=== PATIENT | male | born 1945 | race Caucasian/White ===

== ENCOUNTER 2019-08-13 05:59 | Day surgery (SDC) | payer MEDICARE, MEDICAID ==
[2019-08-13] MEDS ORDERED: Bupivacaine 0.5% 50 ML MDV ONE (06:58)
[2019-08-13] MEDS ORDERED: Lidocaine 1% with EPINEPHrine 1:100,000 50 ML MDV ONE (06:58)
[2019-08-13] MEDS ORDERED: Dextrose 5%-Lactated Ringers 1,000 ML IV SCH (07:00)
[2019-08-13] MEDS ORDERED: fentaNYL 100 MCG/2 ML SDV ONE (07:11)
[2019-08-13] MEDS ORDERED: Midazolam 1 MG/ML 2 ML SDV ONE (07:11)
[2019-08-13] MEDS ORDERED: Propofol 200 MG/20 ML SDV ONE (07:11)
[2019-08-13] MEDS ORDERED: Linezolid 600 MG in Premix Bag 1 BAG IV ONE (07:30)
[2019-08-13] MEDS ORDERED: Sodium Chloride 0.9% 1,000 ML IV SCH (09:00)
--- NOTE | 2019-08-22 14:35 | OR ---
DATE OF PROCEDURE: 08/13/2019 SURGEON: Teodoro Tai MD PREOPERATIVE DIAGNOSIS: Indication for central venous access. POSTOPERATIVE DIAGNOSIS: Indication for central venous access. PROCEDURE PERFORMED: Insertion of Bard port via left subclavian vein approach ([id number]). ANESTHESIA: Local plus IV sedation. INDICATION FOR PROCEDURE: This is a 73-year-old male presenting with advanced laryngeal carcinoma requiring scheduled IV hydration. At this point, he has a very little in the way of peripheral venous access, and a central access has been requested. Potential risks of procedure including bleeding, infection, problems with pneumohemothorax or vascular injury, problems with port becoming infected or occluded were all reviewed and the patient wishes to proceed. DETAILS OF PROCEDURE: The patient was taken to the operating room and placed in a supine position. IV sedation was administered. The upper chest and neck areas were prepped and draped. The left subclavian area was anesthetized with 1% lidocaine. Left subclavian vein cannulated, a guidewire passed, and at that point, manipulated into the superior vena cava. Some additional local was injected and a transverse infraclavicular incision was made, carried down through skin and subcutaneous tissue down to the level of the plane behind the pectoralis major fascia. This was then bluntly dissected creating a pouch for the port. Port was assembled, flushed with heparinized saline, and the port was placed in the pocket. Catheter was cut such that the tip would be in the area of the superior vena cava and right atrial junction, and it was deployed there without difficulty using the introducers and peel- away catheter system. At that point, the incision was closed with 3-0 and 4-0 Vicryl stitch deep and the skin with a 4-0 Vicryl subcuticular stitch. Port was aspirated and then injected with heparin. Once again, good back and forward flow were confirmed, and the patient was taken to the recovery room in satisfactory condition. Teodoro Tai MD /[id number]
== END 2019-08-13 10:12 | disposition home or self-care (01) ==
LOC: JP.SDS 05:59
PROVIDERS: ATTEND Surgery
DX: C32.9 Malignant neoplasm of larynx, unspecified (principal); J44.9 Chronic obstructive pulmonary disease, unspecified; E11.9 Type 2 diabetes mellitus without complications; K22.70 Barrett's esophagus without dysplasia; Z79.891 Long term (current) use of opiate analgesic
CPT/HCPCS: 36561; C1788; J1642; J2020; J2250; J2704; J3010; J3490; J7030; J7121

== ENCOUNTER 2020-06-30 16:00 | Emergency (ER) | payer MEDICARE, MEDICAID ==
--- NOTE | 2020-06-30 18:13 | EDM.PDOC ---
ED HPI GENERAL MEDICAL PROBLEM - General Chief Complaint: Respiratory Problem Stated Complaint: TROUBLE BREATHING Time Seen by Provider: 06/30/20 17:57 Source of Information: Reports: Patient History Limitations: Reports: Physical Impairment - History of Present Illness INITIAL COMMENTS - FREE TEXT/NARRATIVE: 74-year-old gentleman presents emergency department a complaint of cough and shortness of breath, he does have a tracheostomy in place therefore it is difficult to communicate he has no voice activation system communication is done by writing. He states that he has been ill for 3 days coughing up white sputum and feels short of breath no fevers no chest pain he is worried he may have pneumonia as this is similar to prior episodes - Related Data Allergies Allergy/AdvReac Type Severity Reaction Status Date / Time No Known Allergies Allergy Verified 06/30/20 16:36 Home Meds: Home Meds Omeprazole 20 mg PO ACBREAKFAST 06/26/19 [History] Vitamin B Complex [B Complex] 1 each PO DAILY 06/26/19 [History] metFORMIN [Glucophage] 850 mg PO BIDMEALS 06/26/19 [History] Past Medical History HEENT History: Reports: Cataract, Impaired Vision, Other (See Below) Other HEENT History: upper and lower dentures Respiratory History: Reports: COPD, Other (See Below) Other Respiratory History: emphysema Gastrointestinal History: Reports: Colon Polyp, Hepatitis, Other (See Below) Other Gastrointestinal History: acid reflux Musculoskeletal History: Reports: Back Pain, Chronic, Neck Pain, Chronic Neurological History: Reports: Concussion, Head Trauma, TIA Psychiatric History: Reports: Anxiety, Depression Endocrine/Metabolic History: Reports: Diabetes, Type II Immunologic History: Reports: Other (See Below) Other Immunologic History: hep C Oncologic (Cancer) History: Reports: Other (See Below) Other Oncologic History: throat - Infectious Disease History Infectious Disease History: Reports: Hepatitis C - Past Surgical History HEENT Surgical History: Reports: Cataract Surgery, Eye Surgery, Other (See Below) Other HEENT Surgeries/Procedures: eye implants Respiratory Surgical History: Reports: Tracheostomy GI Surgical History: Reports: Colonoscopy Neurological Surgical History: Reports: None Musculoskeletal Surgical History: Reports: None Oncologic Surgical History: Reports: None Social & Family History - Tobacco Use Tobacco Use Status *Q: Unknown Ever Used Tobacco - Caffeine Use Caffeine Use: Reports: None - Recreational Drug Use Recreational Drug Use: No ED ROS GENERAL - Review of Systems Review Of Systems: See Below Constitutional: Denies: Fever, Chills HEENT: Reports: No Symptoms Respiratory: Reports: Shortness of Breath, Wheezing, Cough, Sputum Cardiovascular: Reports: Dyspnea on Exertion. Denies: Chest Pain GI/Abdominal: Reports: No Symptoms : Reports: No Symptoms Musculoskeletal: Reports: No Symptoms ED EXAM, GENERAL - Physical Exam Exam: See Below Exam Limited By: No Limitations General Appearance: Alert, WD/WN, No Apparent Distress Respiratory/Chest: No Respiratory Distress, No Accessory Muscle Use, Decreased Breath Sounds, Rhonchi, Wheezing Cardiovascular: Regular Rate, Rhythm, No Murmur Course - Vital Signs Last Recorded V/S: Last Vital Signs Temp 96.5 F L 06/30/20 16:42 Pulse 75 06/30/20 18:28 Resp 20 06/30/20 17:24 BP 145/67 H 06/30/20 18:28 Pulse Ox 99 06/30/20 18:28 - Orders/Labs/Meds Orders: Active Orders 24 hr Category Date Time Status Chest 2V [CR] Urgent Exams 06/30/20 18:03 Taken Azithromycin [Zithromax] Med 06/30/20 19:00 Stat 500 mg PO NOW STA predniSONE Med 06/30/20 19:00 Once 20 mg PO ONETIME ONE Medication Orders Azithromycin (Zithromax) 500 mg PO NOW STA Stop: 06/30/20 19:01 Prednisone (Prednisone) 20 mg PO ONETIME ONE Stop: 06/30/20 19:01 Labs: Laboratory Tests 06/30/20 06/30/20 06/30/20 Range/Units 18:18 18:18 18:18 WBC 6.3 (4.5-11.0) K/uL RBC 4.28 L (4.30-5.90) M/uL Hgb 8.5 L D (12.0-15.0) g/dL Hct 28.8 L (40.0-54.0) % MCV 67 L (80-98) fL MCH 20 L (27-31) pg MCHC 30 L (32-36) % Plt Count 623 H (150-400) K/uL Neut % (Auto) 64 (36-66) % Lymph % (Auto) 18 L (24-44) % [place] % (Auto) 15 H (2-6) % Eos % (Auto) 4 (2-4) % Baso % (Auto) 1 (0-1) % Sodium 143 (140-148) mmol/L Potassium 3.7 (3.6-5.2) mmol/L Chloride 105 (100-108) mmol/L Carbon Dioxide 27 (21-32) mmol/L Anion Gap 11.1 (5.0-14.0) mmol/L BUN 21 H (7-18) mg/dL Creatinine 1.6 H (0.8-1.3) mg/dL Est Cr Clr Drug Dosing 45.81 mL/min Estimated GFR (MDRD) 43 L (>60) Glucose 98 (74-106) mg/dL Lactic Acid 1.3 (0.4-2.0) mmol/L Calcium 8.9 (8.5-10.1) mg/dL Total Bilirubin 0.2 (0.2-1.0) mg/dL AST 16 (15-37) U/L ALT 14 (12-78) U/L Alkaline Phosphatase 91 (46-116) U/L Troponin I < 0.017 (0.000-0.056) ng/mL Total Protein 7.5 (6.4-8.2) g/dL Albumin 3.6 (3.4-5.0) g/dL Globulin 3.9 H (2.3-3.5) g/dL Albumin/Globulin Ratio 0.9 L (1.2-2.2) Procalcitonin ng/mL 06/30/20 Range/Units 18:18 WBC (4.5-11.0) K/uL RBC (4.30-5.90) M/uL Hgb (12.0-15.0) g/dL Hct (40.0-54.0) % MCV (80-98) fL MCH (27-31) pg MCHC (32-36) % Plt Count (150-400) K/uL Neut % (Auto) (36-66) % Lymph % (Auto) (24-44) % [place] % (Auto) (2-6) % Eos % (Auto) (2-4) % Baso % (Auto) (0-1) % Sodium (140-148) mmol/L Potassium (3.6-5.2) mmol/L Chloride (100-108) mmol/L Carbon Dioxide (21-32) mmol/L Anion Gap (5.0-14.0) mmol/L BUN (7-18) mg/dL Creatinine (0.8-1.3) mg/dL Est Cr Clr Drug Dosing mL/min Estimated GFR (MDRD) (>60) Glucose (74-106) mg/dL Lactic Acid (0.4-2.0) mmol/L Calcium (8.5-10.1) mg/dL Total Bilirubin (0.2-1.0) mg/dL AST (15-37) U/L ALT (12-78) U/L Alkaline Phosphatase (46-116) U/L Troponin I (0.000-0.056) ng/mL Total Protein (6.4-8.2) g/dL Albumin (3.4-5.0) g/dL Globulin (2.3-3.5) g/dL Albumin/Globulin Ratio (1.2-2.2) Procalcitonin < 0.05 ng/mL Meds: Medications Generic Name Dose Route Start Last Admin Trade Name Freq PRN Reason Stop Dose Admin Azithromycin 500 mg 06/30/20 19:00 Zithromax PO 06/30/20 19:01 NOW STA Prednisone 20 mg 06/30/20 19:00 Prednisone PO 06/30/20 19:01 ONETIME ONE Departure - Departure Time of Disposition: 19:04 Disposition: Home, Self-Care 01 Condition: Poor Clinical Impression: COPD exacerbation - Discharge Information Instructions: Chronic Obstructive Pulmonary Disease Exacerbation, [id number] Referrals: PCP,None [Primary Care Provider] - Forms: ED Department Discharge Additional Instructions: Take full course of antibiotics, take full course of steroids, please followup with your primary care provider in 3-5 days if not better, please call return to the emergency department with worsening of symptoms. Sepsis Event Note (ED) - Evaluation Sepsis Screening Result: No Definite Risk - Focused Exam Vital Signs: Vital Signs Temp Pulse Resp BP Pulse Ox 06/30/20 18:28 75 145/67 H 99 06/30/20 17:53 74 132/69 97 06/30/20 17:24 75 20 123/67 98 06/30/20 16:42 96.5 F L 76 20 131/71 98 06/30/20 16:29 96.5 F L 76 22 H 131/71 98 - My Orders Last 24 Hours: My Active Orders 06/30/20 18:03 Chest 2V [CR] Urgent 06/30/20 19:00 predniSONE 20 mg PO ONETIME ONE 06/30/20 19:00 Azithromycin [Zithromax] 500 mg PO NOW STA - Assessment/Plan Last 24 Hours: My Active Orders 06/30/20 18:03 Chest 2V [CR] Urgent 06/30/20 19:00 predniSONE 20 mg PO ONETIME ONE 06/30/20 19:00 Azithromycin [Zithromax] 500 mg PO NOW STA Plan: Assessment Acuity = acute Site and laterality = COPD exacerbation Etiology = unknown Manifestations = dyspnea sputum production Location of injury = Home Lab values = 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
[2020-06-30] MEDS ORDERED: Azithromycin 250 MG Tab PO STA (19:00)
[2020-06-30] MEDS ORDERED: predniSONE 20 MG Tab PO ONE (19:00)
--- NOTE | 2020-07-01 09:16 | CR ---
CHEST: 2 view CLINICAL HISTORY:SOB COMPARISON:June 2019 FINDINGS: Patient has a tracheostomy tube in place. The heart size, pulmonary vascularity and hilar structures are normal. No infiltrate effusion or pneumothorax is seen. There are atherosclerotic changes in the aorta.. IMPRESSION: No acute cardiopulmonary process. Tracheostomy tube
== END 2020-06-30 20:26 | disposition home or self-care (01) ==
LOC: JP.ED 16:00
DX: J44.1 Chronic obstructive pulmonary disease with (acute) exacerbation (principal); E11.9 Type 2 diabetes mellitus without complications; K21.9 Gastro-esophageal reflux disease without esophagitis; Z79.84 Long term (current) use of oral hypoglycemic drugs; Z79.899 Other long term (current) drug therapy; Z86.73 Personal history of transient ischemic attack (TIA), and cerebral infarction without residual deficits
CPT/HCPCS: 36415; 71046; 80053; 83605; 84145; 84484; 85025; 99285; A9270; J7512; 99283

== ENCOUNTER 2020-07-07 10:45 | Emergency (ER) | payer MEDICARE, MEDICAID ==
--- NOTE | 2020-07-07 14:41 | EDM.PDOCBH ---
ED HPI GENERAL MEDICAL PROBLEM - General Chief Complaint: Behavioral/Psych Stated Complaint: MENTAL EVEL Time Seen by Provider: 07/07/20 14:25 Source of Information: Reports: Patient, Police History Limitations: Reports: Physical Impairment (Patient has a trach due to throat cancer, can only communicate by writing but is mentally clear) - History of Present Illness INITIAL COMMENTS - FREE TEXT/NARRATIVE: 74-year-old male arrives with police, he is homeless and been drinking daily and says if he can get into detox and someplace warm he is going to kill himself by running in front of a car. He is not suicidal from depression, only because he is homeless and drinking. He does not feel he would be suicidal if in a treatment center. He has not been to [facility] in the past but is asking to go to detox. His last drink was this morning. Onset: Unknown/Unsure Associated Symptoms: Reports: Malaise. Denies: Chest Pain, Cough, Nausea/Vomiting, Shortness of Breath - Related Data Allergies Allergy/AdvReac Type Severity Reaction Status Date / Time No Known Allergies Allergy Verified 07/07/20 14:47 Home Meds: Home Meds Omeprazole 20 mg PO ACBREAKFAST 06/26/19 [History] Vitamin B Complex [B Complex] 1 each PO DAILY 06/26/19 [History] metFORMIN [Glucophage] 850 mg PO BIDMEALS 06/26/19 [History] Past Medical History HEENT History: Reports: Cataract, Impaired Vision, Other (See Below) Other HEENT History: upper and lower dentures Respiratory History: Reports: COPD, Other (See Below) Other Respiratory History: emphysema Gastrointestinal History: Reports: Colon Polyp, Hepatitis, Other (See Below) Other Gastrointestinal History: acid reflux Musculoskeletal History: Reports: Back Pain, Chronic, Neck Pain, Chronic Neurological History: Reports: Concussion, Head Trauma, TIA Psychiatric History: Reports: Anxiety, Depression Endocrine/Metabolic History: Reports: Diabetes, Type II Immunologic History: Reports: Other (See Below) Other Immunologic History: hep C Oncologic (Cancer) History: Reports: Other (See Below) Other Oncologic History: throat - Infectious Disease History Infectious Disease History: Reports: Hepatitis C - Past Surgical History HEENT Surgical History: Reports: Cataract Surgery, Eye Surgery, Other (See Below) Other HEENT Surgeries/Procedures: eye implants Respiratory Surgical History: Reports: Tracheostomy GI Surgical History: Reports: Colonoscopy Neurological Surgical History: Reports: None Musculoskeletal Surgical History: Reports: None Oncologic Surgical History: Reports: None Social & Family History - Caffeine Use Caffeine Use: Reports: None ED ROS GENERAL - Review of Systems Review Of Systems: See Below Constitutional: Denies: Fever, Chills HEENT: Reports: Other (Unable to speak due to tracheostomy from throat cancer) Respiratory: Denies: Shortness of Breath, Cough Cardiovascular: Denies: Chest Pain GI/Abdominal: Denies: Nausea, Vomiting Skin: Reports: No Symptoms Neurological: Denies: Headache Psychiatric: Reports: Anxiety ED EXAM, BEHAVIORAL HEALTH - Physical Exam Exam: See Below Exam Limited By: No Limitations General Appearance: Alert, No Apparent Distress Eye Exam: Bilateral Eye: Normal Inspection (No jaundice) Head: Atraumatic Respiratory/Chest: No Respiratory Distress, Lungs Clear Cardiovascular: Regular Rate, Rhythm Neurological: Alert, No Motor/Sensory Deficits, Oriented x 3 Psychiatric: Flat Affect Skin Exam: Warm, Dry COURSE, BEHAVIORAL HEALTH COMP - Course Vital Signs: Last Vital Signs Temp 97.9 F 07/07/20 14:51 Pulse 79 07/07/20 14:51 Resp 16 07/07/20 14:51 BP 160/74 H 07/07/20 14:51 Pulse Ox 98 07/07/20 14:51 Orders, Labs, Meds: Laboratory Tests 07/07/20 07/07/20 07/07/20 Range/Units 14:37 14:50 14:50 WBC 10.1 (4.5-11.0) K/uL RBC 4.33 (4.30-5.90) M/uL Hgb 8.7 L (12.0-15.0) g/dL Hct 29.3 L (40.0-54.0) % MCV 68 L (80-98) fL MCH 20 L (27-31) pg MCHC 30 L (32-36) % Plt Count 672 H (150-400) K/uL Neut % (Auto) 80 H (36-66) % Lymph % (Auto) 10 L (24-44) % [place] % (Auto) 10 H (2-6) % Eos % (Auto) 0 L (2-4) % Baso % (Auto) 0 (0-1) % Sodium 141 (140-148) mmol/L Potassium 3.4 L (3.6-5.2) mmol/L Chloride 104 (100-108) mmol/L Carbon Dioxide 27 (21-32) mmol/L Anion Gap 13.4 (5.0-14.0) mmol/L BUN 23 H (7-18) mg/dL Creatinine 1.3 (0.8-1.3) mg/dL Est Cr Clr Drug Dosing 65.17 mL/min Estimated GFR (MDRD) 54 L (>60) Glucose 136 H (74-106) mg/dL Calcium 8.3 L (8.5-10.1) mg/dL Urine Opiates Screen Negative (NEGATIVE) Ur Oxycodone Screen Negative (NEGATIVE) Urine Methadone Screen Negative (NEGATIVE) Ur Propoxyphene Screen Negative (NEGATIVE) Ur Barbiturates Screen Negative (NEGATIVE) Ur Tricyclics Screen Negative (NEGATIVE) Ur Phencyclidine Scrn Negative (NEGATIVE) Ur Amphetamine Screen Negative (NEGATIVE) U Methamphetamines Scrn Negative (NEGATIVE) Urine MDMA Screen Negative (NEGATIVE) U Benzodiazepines Scrn Negative (NEGATIVE) U Cocaine Metab Screen Negative (NEGATIVE) U Marijuana (THC) Screen Negative (NEGATIVE) Ethyl Alcohol mg/dL 07/07/20 Range/Units 14:50 WBC (4.5-11.0) K/uL RBC (4.30-5.90) M/uL Hgb (12.0-15.0) g/dL Hct (40.0-54.0) % MCV (80-98) fL MCH (27-31) pg MCHC (32-36) % Plt Count (150-400) K/uL Neut % (Auto) (36-66) % Lymph % (Auto) (24-44) % [place] % (Auto) (2-6) % Eos % (Auto) (2-4) % Baso % (Auto) (0-1) % Sodium (140-148) mmol/L Potassium (3.6-5.2) mmol/L Chloride (100-108) mmol/L Carbon Dioxide (21-32) mmol/L Anion Gap (5.0-14.0) mmol/L BUN (7-18) mg/dL Creatinine (0.8-1.3) mg/dL Est Cr Clr Drug Dosing mL/min Estimated GFR (MDRD) (>60) Glucose (74-106) mg/dL Calcium (8.5-10.1) mg/dL Urine Opiates Screen (NEGATIVE) Ur Oxycodone Screen (NEGATIVE) Urine Methadone Screen (NEGATIVE) Ur Propoxyphene Screen (NEGATIVE) Ur Barbiturates Screen (NEGATIVE) Ur Tricyclics Screen (NEGATIVE) Ur Phencyclidine Scrn (NEGATIVE) Ur Amphetamine Screen (NEGATIVE) U Methamphetamines Scrn (NEGATIVE) Urine MDMA Screen (NEGATIVE) U Benzodiazepines Scrn (NEGATIVE) U Cocaine Metab Screen (NEGATIVE) U Marijuana (THC) Screen (NEGATIVE) Ethyl Alcohol < 3 mg/dL Medications Discontinued Medications Generic Name Dose Route Start Last Admin Trade Name Freq PRN Reason Stop Dose Admin Lorazepam 0.5 mg 07/07/20 16:10 07/07/20 16:35 Ativan PO 07/07/20 16:11 0.5 mg ONETIME ONE Administration Re-Assessment/Re-Exam: Consulted the detox center, they do have a male bed available. EtOH and urine drug screen were requested. Patient was stable while in the emergency room. Hemoglobin is low but improved from 1 week ago. Urine drug screen is negative and alcohol is 0, patient does claim that he has had nothing to drink since early this morning. [facility] will be called to see if they will admit him to detox. Urine drug screen is negative, EtOH is less than 3. Patient was given 0.5 mg of oral Ativan because it his anxiety and will be transferred to [facility] for detox. Departure - Departure Time of Disposition: 18:17 Disposition: DC/Tfer to Other 70 Clinical Impression: Alcohol abuse, Anxiety - Discharge Information Instructions: Alcohol Use Disorder Referrals: PCP,None [Primary Care Provider] - Forms: ED Department Discharge Care Plan Goals: Participate in alcohol detox as recommended, and recheck with a primary provider after your discharge. Avoid alcohol in the future.
[2020-07-07] MEDS ORDERED: LORazepam 0.5 MG Tab PO ONE (16:10)
== END 2020-07-07 18:17 | disposition other institution (70) ==
LOC: JP.ED 10:45
DX: F41.9 Anxiety disorder, unspecified (principal); F10.10 Alcohol abuse, uncomplicated; J43.9 Emphysema, unspecified; E11.9 Type 2 diabetes mellitus without complications
CPT/HCPCS: 36415; 80048; 80305; 80307; 85025; 99284; A9270

== ENCOUNTER 2020-07-17 15:26 | Emergency (ER) | payer MEDICARE, MEDICAID ==
--- NOTE | 2020-07-17 18:53 | EDM.PDOC ---
ED HPI GENERAL MEDICAL PROBLEM - General Chief Complaint: Drug or Alcohol Abuse Stated Complaint: DETOX Time Seen by Provider: 07/17/20 18:47 Source of Information: Reports: Patient, RN Notes Reviewed History Limitations: Reports: No Limitations - History of Present Illness INITIAL COMMENTS - FREE TEXT/NARRATIVE: 74-year-old gentleman presents emergency department requesting to go to detox he is homeless no complaints - Related Data Allergies Allergy/AdvReac Type Severity Reaction Status Date / Time No Known Allergies Allergy Verified 07/17/20 18:19 Home Meds: Home Meds Omeprazole 20 mg PO ACBREAKFAST 06/26/19 [History] Past Medical History HEENT History: Reports: Cataract, Impaired Vision, Other (See Below) Other HEENT History: upper and lower dentures Respiratory History: Reports: COPD, Other (See Below) Other Respiratory History: emphysema Gastrointestinal History: Reports: Colon Polyp, Hepatitis, Other (See Below) Other Gastrointestinal History: acid reflux Musculoskeletal History: Reports: Back Pain, Chronic, Neck Pain, Chronic Neurological History: Reports: Concussion, Head Trauma, TIA Psychiatric History: Reports: Anxiety, Depression Endocrine/Metabolic History: Reports: Diabetes, Type II Immunologic History: Reports: Other (See Below) Other Immunologic History: hep C Oncologic (Cancer) History: Reports: Other (See Below) Other Oncologic History: throat - Infectious Disease History Infectious Disease History: Reports: Hepatitis C - Past Surgical History HEENT Surgical History: Reports: Cataract Surgery, Eye Surgery, Other (See Below) Other HEENT Surgeries/Procedures: eye implants Respiratory Surgical History: Reports: Tracheostomy GI Surgical History: Reports: Colonoscopy Neurological Surgical History: Reports: None Musculoskeletal Surgical History: Reports: None Oncologic Surgical History: Reports: None Social & Family History - Tobacco Use Tobacco Use Status *Q: Current Some Day Tobacco User Years of Tobacco use: 40 Packs/Tins Daily: 0.1 - Caffeine Use Caffeine Use: Reports: None ED ROS GENERAL - Review of Systems Review Of Systems: See Below Constitutional: Reports: No Symptoms ED EXAM, GENERAL - Physical Exam Exam: See Below Exam Limited By: No Limitations General Appearance: Alert, WD/WN, No Apparent Distress Respiratory/Chest: No Respiratory Distress Course - Vital Signs Last Recorded V/S: Last Vital Signs Temp 97.4 F 07/17/20 18:14 Pulse 77 07/17/20 18:14 Resp 16 07/17/20 18:14 BP 123/66 11/27/20 18:14 Pulse Ox 97 07/17/20 18:14 Departure - Departure Time of Disposition: 18:53 Disposition: Home, Self-Care 01 Condition: Poor Clinical Impression: Homeless - Discharge Information Referrals: PCP,None [Primary Care Provider] - Additional Instructions: Follow-up with your primary care as needed Sepsis Event Note (ED) - Focused Exam Vital Signs: Vital Signs Temp Pulse Resp BP Pulse Ox 07/17/20 18:14 97.4 F 77 16 123/66 97 - Assessment/Plan Plan: Assessment Acuity = acute Site and laterality = alcoholic abuse and dependence Etiology = EtOH Manifestations = none Location of injury = Home Lab values = none Plan The detoxification facility in [facility] has declined him because of his behavior in the past he is currently homeless I did offer him to stay in the lobby until he can figure out where he needs to go. This note was dictated using [employer] voice recognition software please call with any questions on syntax or grammar.
== END 2020-07-17 19:04 | disposition home or self-care (01) ==
LOC: JP.ED 15:26
DX: Z59.0 Homelessness (principal); J44.9 Chronic obstructive pulmonary disease, unspecified; E11.9 Type 2 diabetes mellitus without complications; F17.210 Nicotine dependence, cigarettes, uncomplicated; Z86.73 Personal history of transient ischemic attack (TIA), and cerebral infarction without residual deficits
CPT/HCPCS: 99284

== ENCOUNTER 2020-07-31 19:38 | Observation (INO) | payer MEDICARE, MEDICAID ==
--- NOTE | 2020-07-31 21:04 | EDM.PDOC ---
ED HPI GENERAL MEDICAL PROBLEM - General Chief Complaint: General Stated Complaint: [facility] Time Seen by Provider: 07/31/20 20:05 Source of Information: Reports: Patient, EMS History Limitations: Reports: Language Barrier - History of Present Illness INITIAL COMMENTS - FREE TEXT/NARRATIVE: 74-year-old male, history of tracheal cancer and tracheostomy was brought in by ambulance because a well patient check follow patient in a dark unheated camper with no running water. Patient claims he wants to . Is also having significant pain of his feet. Cough but no shortness of breath, denies any fever or chills. A few weeks ago he was sent out to [place] for detox and was discharged. The police felt he was unsafe staying in the camper so called the ambulance. Onset: Unknown/Unsure Associated Symptoms: Reports: Cough, Malaise, Other (Lower extremity pain bilaterally, posterior right shoulder pain) bilateral feet Pain Score (Numeric/FACES): 8 - Related Data Allergies Allergy/AdvReac Type Severity Reaction Status Date / Time No Known Allergies Allergy Verified 07/31/20 20:02 Home Meds: Home Meds Omeprazole 20 mg PO ACBREAKFAST 06/26/19 [History] Past Medical History HEENT History: Reports: Cataract, Impaired Vision, Other (See Below) Other HEENT History: upper and lower dentures Respiratory History: Reports: COPD, Other (See Below) Other Respiratory History: emphysema. Tracheostomy Gastrointestinal History: Reports: Colon Polyp, Hepatitis, Other (See Below) Other Gastrointestinal History: acid reflux Musculoskeletal History: Reports: Back Pain, Chronic, Neck Pain, Chronic Neurological History: Reports: Concussion, Head Trauma, TIA Psychiatric History: Reports: Anxiety, Depression, Suicide Attempt, Suicidal Ideation Endocrine/Metabolic History: Reports: Diabetes, Type II Immunologic History: Reports: Other (See Below) Other Immunologic History: hep C Oncologic (Cancer) History: Reports: Other (See Below) Other Oncologic History: throat - Infectious Disease History Infectious Disease History: Reports: Hepatitis C - Past Surgical History HEENT Surgical History: Reports: Cataract Surgery, Eye Surgery, Other (See Below) Other HEENT Surgeries/Procedures: eye implants Respiratory Surgical History: Reports: Tracheostomy GI Surgical History: Reports: Colonoscopy Neurological Surgical History: Reports: None Musculoskeletal Surgical History: Reports: None Oncologic Surgical History: Reports: None Social & Family History - Tobacco Use Tobacco Use Status *Q: Never Tobacco User - Caffeine Use Caffeine Use: Reports: None - Recreational Drug Use Recreational Drug Use: No ED ROS GENERAL - Review of Systems Review Of Systems: See Below Constitutional: Reports: Malaise. Denies: Fever, Chills HEENT: Reports: Other (Tracheostomy). Denies: Throat Pain Respiratory: Reports: Cough, Sputum Cardiovascular: Reports: Chest Pain (Right posterior chest pain around his right shoulder which is chronic) GI/Abdominal: Denies: Nausea, Vomiting Neurological: Reports: Other (Neuropathy-like symptoms of both his lower extremities especially around the feet and ankles). Denies: Confusion, Headache Psychiatric: Reports: Depression, Suicidal Ideation ED EXAM, GENERAL - Physical Exam Exam: See Below Exam Limited By: Language Barrier General Appearance: Alert, No Apparent Distress Eye Exam: Bilateral Eye: Other (Conjunctiva are pale, no other findings or asymmetry) Head: Atraumatic Neck: Other (Open tracheostomy hole) Respiratory/Chest: No Respiratory Distress, Wheezing (A few scattered expiratory wheezes but generally clear) Cardiovascular: Regular Rate, Rhythm GI/Abdominal: Soft, Non-Tender Extremities: Other (Even light palpation of the calcaneus area of either foot, the heel, or the top of the foot causes pain. There does not appear to be any ischemia or discoloration of the skin. He does have onychomycosis of the large toenails). No: Pedal Edema Neurological: Alert, Oriented, No Motor/Sensory Deficits Psychiatric: Normal Affect, Normal Mood Skin Exam: Warm, Dry Course - Vital Signs Last Recorded V/S: Last Vital Signs Temp 97.8 F 08/01/20 00:13 Pulse 66 08/01/20 00:13 Resp 16 08/01/20 00:13 BP 130/45 L 08/01/20 00:13 Pulse Ox 97 08/01/20 00:13 - Orders/Labs/Meds Orders: Active Orders 24 hr Category Date Time Status Chest 2V [CR] Routine Exams 07/31/20 20:04 Taken DRUG SCREEN, URINE [URCHEM] Stat Lab 07/31/20 20:04 Ordered UA W/MICROSCOPIC [URIN] Urgent Lab 07/31/20 20:04 Ordered Medication Orders Acetaminophen (Tylenol) 650 mg PO Q4H PRN PRN Reason: Pain (Mild 1-3)/fever Hydrocodone Bitart/Acetaminophen ([place] 325-5 Mg) 2 tab PO Q4H PRN PRN Reason: Pain (moderate 4-6) Albuterol (Proventil Neb Soln) 2.5 mg NEB Q4H PRN PRN Reason: Shortness Of Breath/wheezing Albuterol/Ipratropium (Duoneb 3.0-0.5 Mg/3 Ml) 3 ml NEB QID PRN PRN Reason: Shortness Of Breath/wheezing Bisacodyl (Dulcolax) 5 mg PO DAILY PRN PRN Reason: Constipation Docusate Sodium (Colace) 100 mg PO BID PRN PRN Reason: Constipation Gabapentin (Neurontin) 100 mg PO TID [facility] Last Admin: 08/01/20 01:04 Dose: 100 mg Documented by: MARIA FERNANDA Sodium Chloride (Normal Saline) 1,000 mls @ 125 mls/hr IV ASDIRECTED [facility] Last Admin: 08/01/20 01:04 Dose: 125 mls/hr Documented by: MARIA FERNANDA Lorazepam (Ativan) 1 mg IV Q6H PRN PRN Reason: Agitation Melatonin (Melatonin) 6 mg PO BEDTIME [facility] Last Admin: 08/01/20 01:04 Dose: 6 mg Documented by: MARIA FERNANDA Morphine Sulfate (Morphine) 2 mg IVPUSH Q2H PRN PRN Reason: Pain (severe 7-10) Ondansetron HCl (Zofran Odt) 4 mg PO Q6H PRN PRN Reason: Nausea able to take PO Ondansetron HCl (Zofran) 4 mg IV Q4H PRN PRN Reason: Nausea/Vomiting Pantoprazole Sodium (Protonix Iv) 40 mg IV BID [facility] Last Admin: 08/01/20 01:04 Dose: 40 mg Documented by: MARIA FERNANDA Labs: Laboratory Tests 07/31/20 07/31/20 07/31/20 Range/Units 20:18 20:18 20:18 WBC 6.6 (4.5-11.0) K/uL RBC 3.80 L (4.30-5.90) M/uL Hgb 7.8 L (12.0-15.0) g/dL Hct 26.0 L (40.0-54.0) % MCV 68 L (80-98) fL MCH 21 L (27-31) pg MCHC 30 L (32-36) % Plt Count 438 H (150-400) K/uL Neut % (Auto) 69 H (36-66) % Lymph % (Auto) 14 L (24-44) % [place] % (Auto) 12 H (2-6) % Eos % (Auto) 4 (2-4) % Baso % (Auto) 1 (0-1) % Sodium 142 (140-148) mmol/L Potassium 3.6 (3.6-5.2) mmol/L Chloride 105 (100-108) mmol/L Carbon Dioxide 20 L (21-32) mmol/L Anion Gap 20.6 H (5.0-14.0) mmol/L BUN 27 H (7-18) mg/dL Creatinine 1.6 H (0.8-1.3) mg/dL Est Cr Clr Drug Dosing 45.81 mL/min Estimated GFR (MDRD) 43 L (>60) Glucose 92 (74-106) mg/dL Calcium 8.6 (8.5-10.1) mg/dL Total Bilirubin 0.5 D (0.2-1.0) mg/dL AST 56 H D (15-37) U/L ALT 30 D (12-78) U/L Alkaline Phosphatase 89 (46-116) U/L Total Protein 7.3 (6.4-8.2) g/dL Albumin 3.8 (3.4-5.0) g/dL Globulin 3.5 (2.3-3.5) g/dL Albumin/Globulin Ratio 1.1 L (1.2-2.2) Amylase (25-115) U/L Lipase (73-393) U/L Ethyl Alcohol 4 mg/dL SARS-CoV-2 RNA (ZANDER) (NEGATIVE) 07/31/20 07/31/20 Range/Units 21:22 22:00 WBC (4.5-11.0) K/uL RBC (4.30-5.90) M/uL Hgb (12.0-15.0) g/dL Hct (40.0-54.0) % MCV (80-98) fL MCH (27-31) pg MCHC (32-36) % Plt Count (150-400) K/uL Neut % (Auto) (36-66) % Lymph % (Auto) (24-44) % [place] % (Auto) (2-6) % Eos % (Auto) (2-4) % Baso % (Auto) (0-1) % Sodium (140-148) mmol/L Potassium (3.6-5.2) mmol/L Chloride (100-108) mmol/L Carbon Dioxide (21-32) mmol/L Anion Gap (5.0-14.0) mmol/L BUN (7-18) mg/dL Creatinine (0.8-1.3) mg/dL Est Cr Clr Drug Dosing mL/min Estimated GFR (MDRD) (>60) Glucose (74-106) mg/dL Calcium (8.5-10.1) mg/dL Total Bilirubin (0.2-1.0) mg/dL AST (15-37) U/L ALT (12-78) U/L Alkaline Phosphatase (46-116) U/L Total Protein (6.4-8.2) g/dL Albumin (3.4-5.0) g/dL Globulin (2.3-3.5) g/dL Albumin/Globulin Ratio (1.2-2.2) Amylase 51 (25-115) U/L Lipase 140 (73-393) U/L Ethyl Alcohol mg/dL SARS-CoV-2 RNA (ZANDER) Negative (NEGATIVE) Meds: Medications Generic Name Dose Route Start Last Admin Trade Name Freq PRN Reason Stop Dose Admin Acetaminophen 650 mg 08/01/20 00:13 Tylenol PO Q4H PRN Pain (Mild 1-3)/fever Hydrocodone Bitart/Acetaminophen 2 tab 08/01/20 00:13 [place] 325-5 Mg PO Q4H PRN Pain (moderate 4-6) Albuterol 2.5 mg 08/01/20 00:13 Proventil Neb Soln NEB Q4H PRN Shortness Of Breath/wheezing Albuterol/Ipratropium 3 ml 08/01/20 00:13 Duoneb 3.0-0.5 Mg/3 Ml NEB QID PRN Shortness Of Breath/wheezing Bisacodyl 5 mg 08/01/20 00:13 Dulcolax PO DAILY PRN Constipation Docusate Sodium 100 mg 08/01/20 00:13 Colace PO BID PRN Constipation Gabapentin 100 mg 08/01/20 00:13 08/01/20 01:04 Neurontin PO 100 mg TID RENNY Administration Sodium Chloride 1,000 mls @ 125 mls/hr 08/01/20 00:13 08/01/20 01:04 Normal Saline IV 125 mls/hr ASDIRECTED [facility] Administration Lorazepam 1 mg 08/01/20 00:13 Ativan IV Q6H PRN Agitation Melatonin 6 mg 08/01/20 00:13 08/01/20 01:04 Melatonin PO 6 mg BEDTIME [facility] Administration Morphine Sulfate 2 mg 08/01/20 00:13 Morphine IVPUSH Q2H PRN Pain (severe 7-10) Ondansetron HCl 4 mg 08/01/20 00:13 Zofran Odt PO Q6H PRN Nausea able to take PO Ondansetron HCl 4 mg 08/01/20 00:13 Zofran IV Q4H PRN Nausea/Vomiting Pantoprazole Sodium 40 mg 08/01/20 00:13 08/01/20 01:04 Protonix Iv IV 40 mg BID RENNY Administration - Re-Assessments/Exams Free Text/Narrative Re-Assessment/Exam: 07/31/20 21:04 A urine will be obtained for urine drug screen, CBC CMP and EtOH. Two-view chest x-ray was ordered. 07/31/20 21:37 CBC reveals a hemoglobin of only 7.8, patient at that time revealed that he has had some dark stools over the past several weeks. He is continuing to drink alcohol, his alcohol level at this time is only 0.004. No nausea vomiting while in the emergency room. I think this patient needs admission to work-up his worsening anemia and possible GI bleed. Chest x-ray showed no infiltrate. He did remain stable. 07/31/20 21:38 Liver function, amylase and lipase were normal. Madisyn Harper of the hospitalist service was asked to see the patient to consider admission for stabilization and initiation of work-up for ongoing apparent blood loss anemia from GI bleed. 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
--- NOTE | 2020-07-31 23:25 | PCM.HP.2 ---
H&P History of Present Illness - General Date of Service: 07/31/20 Source of Information: Patient, Provider, RN History Limitations: Reports: Language Barrier (open tracheostomy in neck.) - History of Present Illness Initial Comments - Free Text/Narative: chief complaint: weakness 74-year-old male, history of tracheal cancer and tracheostomy was brought in by ambulance because a well patient check follow patient in a dark unheated camper with no running water. Patient claims he wants to . Is also having significant pain of his feet. Cough but no shortness of breath, denies any fever or chills. A few weeks ago he was sent out to [place] for detox and was discharged. The police felt he was unsafe staying in the camper so called the ambulance. Onset: Unknown/Unsure ER work up 07/31/20 21:04 A urine will be obtained for urine drug screen, CBC CMP and EtOH. Two-view chest x-ray was ordered. 07/31/20 21:37 CBC reveals a hemoglobin of only 7.8, patient at that time revealed that he has had some dark stools over the past several weeks. He is continuing to drink alcohol, his alcohol level at this time is only 0.004. No nausea vomiting while in the emergency room. needs admission to work-up his worsening anemia and possible GI bleed. Chest x-ray showed no infiltrate. He did remain stable. 07/31/20 21:38 Liver function, amylase and lipase were normal. Madisyn Harper of the hospitalist service was asked to see the patient to consider admission for stabilization and initiation of work-up for ongoing apparent blood loss anemia from GI bleed. Care Plan Goals: Patient will be admitted to the hospitalist service to initiate treatment and work-up for persistent blood loss anemia. He also has some serious social issues such as homelessness and depression with suicidal ideation which is going to need attention. Patient declines any surgical evaluation of blood loss at this time, he is more concern with lower leg and feet pain. Onset of Symptoms: Reports: Unknown/Unsure Location: Reports: Generalized (weakness and lower leg-feet pain) Quality: Reports: Sharp (sharp intense pain with light touch of feet and lower l egs.) Severity: Severe Improves with: Reports: Rest Worsens with: Reports: Movement (walking is very difficult due to the painful legs and feet) Associated Symptoms: Reports: Weakness, Other (reports drank 3 alcohol drinks today) bilateral feet Pain Score (Numeric/FACES): 8 - Related Data Allergies/Adverse Reactions: Allergies Allergy/AdvReac Type Severity Reaction Status Date / Time No Known Allergies Allergy Verified 07/31/20 20:02 Home Medications: Home Meds Omeprazole 20 mg PO ACBREAKFAST 06/26/19 [History] Past Medical History HEENT History: Reports: Cataract, Impaired Vision, Other (See Below) Other HEENT History: upper and lower dentures Respiratory History: Reports: COPD, Other (See Below) Other Respiratory History: emphysema. Tracheostomy Gastrointestinal History: Reports: Colon Polyp, Hepatitis, Other (See Below) Other Gastrointestinal History: acid reflux Musculoskeletal History: Reports: Back Pain, Chronic, Neck Pain, Chronic Neurological History: Reports: Concussion, Head Trauma, TIA Psychiatric History: Reports: Anxiety, Depression, Suicide Attempt, Suicidal Ideation Endocrine/Metabolic History: Reports: Diabetes, Type II Immunologic History: Reports: Other (See Below) Other Immunologic History: hep C Oncologic (Cancer) History: Reports: Other (See Below) Other Oncologic History: throat - Infectious Disease History Infectious Disease History: Reports: Hepatitis C - Past Surgical History HEENT Surgical History: Reports: Cataract Surgery, Eye Surgery, Other (See Below) Other HEENT Surgeries/Procedures: eye implants Respiratory Surgical History: Reports: Tracheostomy GI Surgical History: Reports: Colonoscopy Neurological Surgical History: Reports: None Musculoskeletal Surgical History: Reports: None Oncologic Surgical History: Reports: None Social & Family History - Tobacco Use Tobacco Use Status *Q: Never Tobacco User - Caffeine Use Caffeine Use: Reports: None - Recreational Drug Use Recreational Drug Use: No - Living Situation & Occupation Living situation: Reports: Occupation: Disabled (lives in a unheated camper) H&P Review of Systems - Review of Systems: Review Of Systems: See Below General: Reports: Weakness HEENT: Reports: Glasses, Sore Throat (history of advanced laryngeal caricinoma, open tracheostomy ), Other (dentures-not wearing at this time) Pulmonary: Reports: No Symptoms, Cough (due to open tracheostomy hole), Other (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 ) Cardiovascular: Reports: No Symptoms Gastrointestinal: Reports: Black Stool (reports dark stool over the past several weeks.) Genitourinary: Reports: No Symptoms Musculoskeletal: Reports: Shoulder Pain (chronic right shoulder and scapula pain) Skin: Reports: Other (large surgical scar noted to the left mid chest along mid- clavicular line to mid-clavicle) Psychiatric: Reports: Anxiety Neurological: Reports: Trouble Speaking (due to open tacheostomy), Other (Neuropathy-like symptoms of both his lower extremities especially around the feet and ankles) Hematologic/Lymphatic: Reports: Anemia Immunologic: Reports: No Symptoms Exam - Exam Exam: See Below - Vital Signs Vital Signs: Last Vital Signs Temp 36.6 C 07/31/20 20:03 Pulse 79 07/31/20 20:03 Resp 20 07/31/20 20:03 BP 140/63 07/31/20 20:03 Pulse Ox 97 07/31/20 20:03 Weight: 86.183 kg - Exam General: Alert, Cooperative, Mild Distress, Other (unkemp appearance.) HEENT: PERRLA, Conjunctiva Clear (pale), EOMI, Hearing Intact, Glasses, Other (denture. ). No: Mucosa Moist & [place] (mouth is dry) Neck: Supple, Trachea Midline (open tracheostomy ), Full Range of Motion, Other (Open tracheostomy hole) Lungs: Normal Respiratory Effort, Decreased Breath Sounds (bilateral), Wheezing, Other ((A few scattered expiratory wheezes but generally clear)) Cardiovascular: Regular Rate, Regular Rhythm, Normal S1, Normal S2 GI/Abdominal Exam: Normal Bowel Sounds, Soft, Non-Tender, No Distention (Male) Exam: Deferred Rectal (Males) Exam: Deferred Back Exam: Normal Inspection, Full Range of Motion, Muscle Spasm (right upper back) Extremities: No Pedal Edema (feet skin is dry and dry.), Normal Capillary Refill, Leg Pain (bilateral lower leg and feet with intense pain with light touch. pulses equal and 2 + bilateral doralis pedis), Other ( Other (Even light palpation of the calcaneus area of either foot, the heel, or the top of the foot causes pain. There does not appear to be any ischemia or discoloration of the skin. He does have onychomycosis of the large toenails). No: Pedal Edema) Peripheral Pulses: 2+: Dorsalis Pedis (L), Dorsalis Pedis (R) Skin: Warm, Dry, Intact, Cool (feet) Neurological: Strength Equal Bilateral Neuro Extensive - Mental Status: Normal Mood/Affect (difficulty with speech due to tracheostomy. but is cooperative and trying express needs.) Psychiatric: Alert, Normal Affect, Normal Mood - Patient Data Lab Results Last 24 hrs: Laboratory Results - last 24 hr 07/31/20 07/31/20 07/31/20 Range/Units 20:18 20:18 20:18 WBC 6.6 (4.5-11.0) K/uL RBC 3.80 L (4.30-5.90) M/uL Hgb 7.8 L (12.0-15.0) g/dL Hct 26.0 L (40.0-54.0) % MCV 68 L (80-98) fL MCH 21 L (27-31) pg MCHC 30 L (32-36) % Plt Count 438 H (150-400) K/uL Neut % (Auto) 69 H (36-66) % Lymph % (Auto) 14 L (24-44) % [place] % (Auto) 12 H (2-6) % Eos % (Auto) 4 (2-4) % Baso % (Auto) 1 (0-1) % Sodium 142 (140-148) mmol/L Potassium 3.6 (3.6-5.2) mmol/L Chloride 105 (100-108) mmol/L Carbon Dioxide 20 L (21-32) mmol/L Anion Gap 20.6 H (5.0-14.0) mmol/L BUN 27 H (7-18) mg/dL Creatinine 1.6 H (0.8-1.3) mg/dL Est Cr Clr Drug Dosing 45.81 mL/min Estimated GFR (MDRD) 43 L (>60) Glucose 92 (74-106) mg/dL Calcium 8.6 (8.5-10.1) mg/dL Total Bilirubin 0.5 D (0.2-1.0) mg/dL AST 56 H D (15-37) U/L ALT 30 D (12-78) U/L Alkaline Phosphatase 89 (46-116) U/L Total Protein 7.3 (6.4-8.2) g/dL Albumin 3.8 (3.4-5.0) g/dL Globulin 3.5 (2.3-3.5) g/dL Albumin/Globulin Ratio 1.1 L (1.2-2.2) Amylase (25-115) U/L Lipase (73-393) U/L Ethyl Alcohol 4 mg/dL SARS-CoV-2 RNA (ZANDER) (NEGATIVE) 07/31/20 07/31/20 Range/Units 21:22 22:00 WBC (4.5-11.0) K/uL RBC (4.30-5.90) M/uL Hgb (12.0-15.0) g/dL Hct (40.0-54.0) % MCV (80-98) fL MCH (27-31) pg MCHC (32-36) % Plt Count (150-400) K/uL Neut % (Auto) (36-66) % Lymph % (Auto) (24-44) % [place] % (Auto) (2-6) % Eos % (Auto) (2-4) % Baso % (Auto) (0-1) % Sodium (140-148) mmol/L Potassium (3.6-5.2) mmol/L Chloride (100-108) mmol/L Carbon Dioxide (21-32) mmol/L Anion Gap (5.0-14.0) mmol/L BUN (7-18) mg/dL Creatinine (0.8-1.3) mg/dL Est Cr Clr Drug Dosing mL/min Estimated GFR (MDRD) (>60) Glucose (74-106) mg/dL Calcium (8.5-10.1) mg/dL Total Bilirubin (0.2-1.0) mg/dL AST (15-37) U/L ALT (12-78) U/L Alkaline Phosphatase (46-116) U/L Total Protein (6.4-8.2) g/dL Albumin (3.4-5.0) g/dL Globulin (2.3-3.5) g/dL Albumin/Globulin Ratio (1.2-2.2) Amylase 51 (25-115) U/L Lipase 140 (73-393) U/L Ethyl Alcohol mg/dL SARS-CoV-2 RNA (ZANDER) Negative (NEGATIVE) Result Diagrams: 07/31/20 20:18 07/31/20 20:18 Sepsis Event Note - Evaluation Sepsis Screening Result: No Definite Risk - Focused Exam Vital Signs: Vital Signs Temp Pulse Resp BP Pulse Ox 07/31/20 20:03 36.6 C 79 20 140/63 97 07/31/20 20:00 36.6 C 79 20 140/63 97 - Problem List (1) Anemia SNOMED Code(s): 656867868 ICD Code: D64.9 - ANEMIA, UNSPECIFIED Status: Acute Priority: High Current Visit: Yes Qualifiers: Iron deficiency anemia type: chronic blood loss Qualified Code(s): D50.0 - Iron deficiency anemia secondary to blood loss (chronic) (2) GI bleed SNOMED Code(s): 24351793 ICD Code: K92.2 - GASTROINTESTINAL HEMORRHAGE, UNSPECIFIED Status: Acute Priority: Medium Current Visit: Yes Qualifiers: GI bleed type/associated pathology: unspecified gastrointestinal hemorrhage type Qualified Code(s): K92.2 - Gastrointestinal hemorrhage, unspecified (3) Alcohol abuse SNOMED Code(s): 78895936 ICD Code: F10.10 - ALCOHOL ABUSE, UNCOMPLICATED Status: Acute Priority: Medium Current Visit: Yes (4) Homeless SNOMED Code(s): 24880840 ICD Code: Z59.0 - HOMELESSNESS Status: Acute Priority: Medium Current Visit: Yes (5) Foot pain, bilateral SNOMED Code(s): 55056853 ICD Code: M79.671 - PAIN IN RIGHT FOOT; M79.672 - PAIN IN LEFT FOOT Status: Acute Priority: Medium Current Visit: Yes (6) History of laryngeal cancer SNOMED Code(s): 387652602, 875739479 ICD Code: Z85.21 - PERSONAL HISTORY OF MALIGNANT NEOPLASM OF LARYNX Status: Acute Priority: Low Current Visit: Yes Problem List Initiated/Reviewed/Updated: Yes Orders Last 24hrs: Active Orders 24 hr Category Date Time Status Chest 2V [CR] Routine Exams 07/31/20 20:04 Taken DRUG SCREEN, URINE [URCHEM] Stat Lab 07/31/20 20:04 Ordered UA W/MICROSCOPIC [URIN] Urgent Lab 07/31/20 20:04 Ordered Assessment/Plan Comment:: Assessment/Plan Comment:: Anemia with GI Bleed. ASSESSMENT AND PLAN Anemia and possible GI Bleed-causing symptoms of weakness & fatigue. He does have report daily alcohol use - he had 3 drinks today. reports several weeks of dark stool. At the time of admission, Mr. Spears declines any surgical intervention at this time. -IV Normal Saline 125ml/hr. for hydration, reassess in a.m. 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 DISPOSITION-anticipate discharge to home or assisted living after the hospital stay. PRIMARY CARE PROVIDER- non noted HOSPITALIST- Dr. Herrera - Mortality Measure Prognosis:: Good
[2020-08-01] MEDS ORDERED: Pantoprazole 40 MG Vial IV SCH (00:13)
[2020-08-01] MEDS ORDERED: Docusate Sodium 100 MG Cap PO PRN (00:13)
[2020-08-01] MEDS ORDERED: Acetaminophen 325 MG Tab PO PRN (00:13)
[2020-08-01] MEDS ORDERED: Morphine 2 MG/ML SYRINGE IVPUSH PRN (00:13)
[2020-08-01] MEDS ORDERED: Albuterol 0.083% 2.5 MG/3 ML Neb Soln NEB PRN (00:13)
[2020-08-01] MEDS ORDERED: LORazepam 2 MG/ML SDV IV PRN (00:13)
[2020-08-01] MEDS ORDERED: Ondansetron 4 MG Tab.DIS PO PRN (00:13)
[2020-08-01] MEDS ORDERED: Albuterol/Ipratropium 3.0-0.5 MG/3 ML Neb Soln NEB PRN (00:13)
[2020-08-01] MEDS ORDERED: Bisacodyl 5 MG Tab PO PRN (00:13)
[2020-08-01] MEDS ORDERED: Ondansetron 4 MG/2 ML SDV IV PRN (00:13)
[2020-08-01] MEDS: Sodium Chloride 0.9% 1,000 ML IV SCH ×3 (01:04→09:15)
[2020-08-01] MEDS: Gabapentin 100 MG Cap PO SCH ×4 (01:04→21:51)
[2020-08-01] MEDS: Melatonin 3 MG Tab PO SCH ×2 (01:04→21:51)
[2020-08-01] MEDS ORDERED: Potassium Chloride 20 MEQ Tab.ER PO ONE (09:00)
[2020-08-01] MEDS: Pantoprazole 40 MG Vial IV SCH ×2 (10:01→21:51)
[2020-08-01] MEDS: Acetaminophen/HYDROcodone 325-5 MG Tab PO PRN (10:05)
--- NOTE | 2020-08-01 10:28 | PCM.PN ---
- General Info Date of Service: 08/01/20 Subjective Update: Mr. Spears is a 74-year-old gentleman who was admitted to observation status through the emergency department last night. A year ago was diagnosed with laryngeal carcinoma and underwent extensive surgery. He currently has a tracheostomy and is unable to speak. He had been living in a camper without heat. Law enforcement was contacted last night to check on him and they did not feel that he was safe in his current living situation so he was brought into the emergency department by ambulance. He does drink alcohol 3-4 times per week. Thus far there has been no evidence of significant alcohol withdrawal. There is no evidence of significant underlying infection or metabolic abnormality. He was found to be anemic with a hemoglobin of 7.8, review of records shows that this is fairly chronic. He does have microcytic indices and has noted recent history of dark stools. He refuses further evaluation with endoscopy. Because of his inability to speak it is difficult for him to provide meaningful information concerning symptoms and review of systems. - Patient Data Vitals - Most Recent: Last Vital Signs Temp 98.1 F 08/01/20 10:15 Pulse 63 08/01/20 10:15 Resp 16 08/01/20 10:15 BP 130/65 08/01/20 10:15 Pulse Ox 95 08/01/20 10:15 Weight - Most Recent: 191 lb 9.6 oz I&O - Last 24 Hours: Intake & Output 07/31/20 08/01/20 08/01/20 22:59 06:59 14:59 Intake Total 560 Balance 560 Lab Results Last 24 Hours: Laboratory Results - last 24 hr 07/31/20 07/31/20 07/31/20 Range/Units 20:18 20:18 20:18 WBC 6.6 (4.5-11.0) K/uL RBC 3.80 L (4.30-5.90) M/uL Hgb 7.8 L (12.0-15.0) g/dL Hct 26.0 L (40.0-54.0) % MCV 68 L (80-98) fL MCH 21 L (27-31) pg MCHC 30 L (32-36) % Plt Count 438 H (150-400) K/uL Neut % (Auto) 69 H (36-66) % Lymph % (Auto) 14 L (24-44) % Bertie % (Auto) 12 H (2-6) % Eos % (Auto) 4 (2-4) % Baso % (Auto) 1 (0-1) % PT (9.5-12.0) sec INR (0.80-1.20) Sodium 142 (140-148) mmol/L Potassium 3.6 (3.6-5.2) mmol/L Chloride 105 (100-108) mmol/L Carbon Dioxide 20 L (21-32) mmol/L Anion Gap 20.6 H (5.0-14.0) mmol/L BUN 27 H (7-18) mg/dL Creatinine 1.6 H (0.8-1.3) mg/dL Est Cr Clr Drug Dosing 45.81 mL/min Estimated GFR (MDRD) 43 L (>60) Glucose 92 (74-106) mg/dL Calcium 8.6 (8.5-10.1) mg/dL Iron (65-175) ug/dL TIBC (250-450) ug/dl % Saturation (20-55) % Ferritin (8-388) ng/ml Total Bilirubin 0.5 D (0.2-1.0) mg/dL AST 56 H D (15-37) U/L ALT 30 D (12-78) U/L Alkaline Phosphatase 89 (46-116) U/L Total Protein 7.3 (6.4-8.2) g/dL Albumin 3.8 (3.4-5.0) g/dL Globulin 3.5 (2.3-3.5) g/dL Albumin/Globulin Ratio 1.1 L (1.2-2.2) Amylase (25-115) U/L Lipase (73-393) U/L Urine Color (YELLOW) Urine Appearance (CLEAR) Urine pH (5.0-8.0) Ur Specific [place] (1.008-1.030) Urine Protein (NEGATIVE) mg/dL Urine Glucose (UA) (NEGATIVE) mg/dL Urine Ketones (NEGATIVE) mg/dL Urine Occult Blood (NEGATIVE) Urine Nitrite (NEGATIVE) Urine Bilirubin (NEGATIVE) Urine Urobilinogen (0.2-1.0) EU/dL Ur Leukocyte Esterase (NEGATIVE) Urine RBC (0-5) Urine WBC (0-5) Ur Epithelial Cells Amorphous Sediment Urine Bacteria Urine Mucus Urine Opiates Screen (NEGATIVE) Ur Oxycodone Screen (NEGATIVE) Urine Methadone Screen (NEGATIVE) Ur Propoxyphene Screen (NEGATIVE) Ur Barbiturates Screen (NEGATIVE) Ur Tricyclics Screen (NEGATIVE) Ur Phencyclidine Scrn (NEGATIVE) Ur Amphetamine Screen (NEGATIVE) U Methamphetamines Scrn (NEGATIVE) Urine MDMA Screen (NEGATIVE) U Benzodiazepines Scrn (NEGATIVE) U Cocaine Metab Screen (NEGATIVE) U Marijuana (THC) Screen (NEGATIVE) Ethyl Alcohol 4 mg/dL SARS-CoV-2 RNA (ZANDER) (NEGATIVE) Blood Type Gel Antibody Screen 07/31/20 07/31/20 08/01/20 Range/Units 21:22 22:00 03:35 WBC (4.5-11.0) K/uL RBC (4.30-5.90) M/uL Hgb (12.0-15.0) g/dL Hct (40.0-54.0) % MCV (80-98) fL MCH (27-31) pg MCHC (32-36) % Plt Count (150-400) K/uL Neut % (Auto) (36-66) % Lymph % (Auto) (24-44) % Bertie % (Auto) (2-6) % Eos % (Auto) (2-4) % Baso % (Auto) (0-1) % PT (9.5-12.0) sec INR (0.80-1.20) Sodium (140-148) mmol/L Potassium (3.6-5.2) mmol/L Chloride (100-108) mmol/L Carbon Dioxide (21-32) mmol/L Anion Gap (5.0-14.0) mmol/L BUN (7-18) mg/dL Creatinine (0.8-1.3) mg/dL Est Cr Clr Drug Dosing mL/min Estimated GFR (MDRD) (>60) Glucose (74-106) mg/dL Calcium (8.5-10.1) mg/dL Iron (65-175) ug/dL TIBC (250-450) ug/dl % Saturation (20-55) % Ferritin (8-388) ng/ml Total Bilirubin (0.2-1.0) mg/dL AST (15-37) U/L ALT (12-78) U/L Alkaline Phosphatase (46-116) U/L Total Protein (6.4-8.2) g/dL Albumin (3.4-5.0) g/dL Globulin (2.3-3.5) g/dL Albumin/Globulin Ratio (1.2-2.2) Amylase 51 (25-115) U/L Lipase 140 (73-393) U/L Urine Color (YELLOW) Urine Appearance (CLEAR) Urine pH (5.0-8.0) Ur Specific [place] (1.008-1.030) Urine Protein (NEGATIVE) mg/dL Urine Glucose (UA) (NEGATIVE) mg/dL Urine Ketones (NEGATIVE) mg/dL Urine Occult Blood (NEGATIVE) Urine Nitrite (NEGATIVE) Urine Bilirubin (NEGATIVE) Urine Urobilinogen (0.2-1.0) EU/dL Ur Leukocyte Esterase (NEGATIVE) Urine RBC (0-5) Urine WBC (0-5) Ur Epithelial Cells Amorphous Sediment Urine Bacteria Urine Mucus Urine Opiates Screen Negative (NEGATIVE) Ur Oxycodone Screen Negative (NEGATIVE) Urine Methadone Screen Negative (NEGATIVE) Ur Propoxyphene Screen Negative (NEGATIVE) Ur Barbiturates Screen Negative (NEGATIVE) Ur Tricyclics Screen Negative (NEGATIVE) Ur Phencyclidine Scrn Negative (NEGATIVE) Ur Amphetamine Screen Presumptive positive H (NEGATIVE) U Methamphetamines Scrn Presumptive positive H (NEGATIVE) Urine MDMA Screen Negative (NEGATIVE) U Benzodiazepines Scrn Presumptive positive H (NEGATIVE) U Cocaine Metab Screen Negative (NEGATIVE) U Marijuana (THC) Screen Negative (NEGATIVE) Ethyl Alcohol mg/dL SARS-CoV-2 RNA (ZANDER) Negative (NEGATIVE) Blood Type Gel Antibody Screen 08/01/20 08/01/20 08/01/20 Range/Units 03:36 04:00 04:00 WBC (4.5-11.0) K/uL RBC (4.30-5.90) M/uL Hgb (12.0-15.0) g/dL Hct (40.0-54.0) % MCV (80-98) fL MCH (27-31) pg MCHC (32-36) % Plt Count (150-400) K/uL Neut % (Auto) (36-66) % Lymph % (Auto) (24-44) % Bertie % (Auto) (2-6) % Eos % (Auto) (2-4) % Baso % (Auto) (0-1) % PT (9.5-12.0) sec INR (0.80-1.20) Sodium (140-148) mmol/L Potassium (3.6-5.2) mmol/L Chloride (100-108) mmol/L Carbon Dioxide (21-32) mmol/L Anion Gap (5.0-14.0) mmol/L BUN (7-18) mg/dL Creatinine (0.8-1.3) mg/dL Est Cr Clr Drug Dosing mL/min Estimated GFR (MDRD) (>60) Glucose (74-106) mg/dL Calcium (8.5-10.1) mg/dL Iron 15 L (65-175) ug/dL TIBC 404 (250-450) ug/dl % Saturation 4 L (20-55) % Ferritin 19 (8-388) ng/ml Total Bilirubin (0.2-1.0) mg/dL AST (15-37) U/L ALT (12-78) U/L Alkaline Phosphatase (46-116) U/L Total Protein (6.4-8.2) g/dL Albumin (3.4-5.0) g/dL Globulin (2.3-3.5) g/dL Albumin/Globulin Ratio (1.2-2.2) Amylase (25-115) U/L Lipase (73-393) U/L Urine Color Yellow (YELLOW) Urine Appearance Clear (CLEAR) Urine pH 5.5 (5.0-8.0) Ur Specific [place] >= 1.030 (1.008-1.030) Urine Protein Negative (NEGATIVE) mg/dL Urine Glucose (UA) Negative (NEGATIVE) mg/dL Urine Ketones Negative (NEGATIVE) mg/dL Urine Occult Blood Negative (NEGATIVE) Urine Nitrite Negative (NEGATIVE) Urine Bilirubin Negative (NEGATIVE) Urine Urobilinogen 0.2 (0.2-1.0) EU/dL Ur Leukocyte Esterase Negative (NEGATIVE) Urine RBC 0-5 (0-5) Urine WBC 0-5 (0-5) Ur Epithelial Cells Not seen Amorphous Sediment Few Urine Bacteria Not seen Urine Mucus Not seen Urine Opiates Screen (NEGATIVE) Ur Oxycodone Screen (NEGATIVE) Urine Methadone Screen (NEGATIVE) Ur Propoxyphene Screen (NEGATIVE) Ur Barbiturates Screen (NEGATIVE) Ur Tricyclics Screen (NEGATIVE) Ur Phencyclidine Scrn (NEGATIVE) Ur Amphetamine Screen (NEGATIVE) U Methamphetamines Scrn (NEGATIVE) Urine MDMA Screen (NEGATIVE) U Benzodiazepines Scrn (NEGATIVE) U Cocaine Metab Screen (NEGATIVE) U Marijuana (THC) Screen (NEGATIVE) Ethyl Alcohol mg/dL SARS-CoV-2 RNA (ZANDER) (NEGATIVE) Blood Type Gel Antibody Screen 08/01/20 08/01/20 08/01/20 Range/Units 04:08 04:08 04:08 WBC 4.2 L (4.5-11.0) K/uL RBC 3.80 L (4.30-5.90) M/uL Hgb 7.8 L (12.0-15.0) g/dL Hct 26.2 L (40.0-54.0) % MCV 69 L (80-98) fL MCH 21 L (27-31) pg MCHC 30 L (32-36) % Plt Count 403 H (150-400) K/uL Neut % (Auto) 63 (36-66) % Lymph % (Auto) 18 L (24-44) % Bertie % (Auto) 14 H (2-6) % Eos % (Auto) 5 H (2-4) % Baso % (Auto) 1 (0-1) % PT 11.3 (9.5-12.0) sec INR 1.04 (0.80-1.20) Sodium (140-148) mmol/L Potassium (3.6-5.2) mmol/L Chloride (100-108) mmol/L Carbon Dioxide (21-32) mmol/L Anion Gap (5.0-14.0) mmol/L BUN (7-18) mg/dL Creatinine (0.8-1.3) mg/dL Est Cr Clr Drug Dosing mL/min Estimated GFR (MDRD) (>60) Glucose (74-106) mg/dL Calcium (8.5-10.1) mg/dL Iron (65-175) ug/dL TIBC (250-450) ug/dl % Saturation (20-55) % Ferritin (8-388) ng/ml Total Bilirubin (0.2-1.0) mg/dL AST (15-37) U/L ALT (12-78) U/L Alkaline Phosphatase (46-116) U/L Total Protein (6.4-8.2) g/dL Albumin (3.4-5.0) g/dL Globulin (2.3-3.5) g/dL Albumin/Globulin Ratio (1.2-2.2) Amylase (25-115) U/L Lipase (73-393) U/L Urine Color (YELLOW) Urine Appearance (CLEAR) Urine pH (5.0-8.0) Ur Specific [place] (1.008-1.030) Urine Protein (NEGATIVE) mg/dL Urine Glucose (UA) (NEGATIVE) mg/dL Urine Ketones (NEGATIVE) mg/dL Urine Occult Blood (NEGATIVE) Urine Nitrite (NEGATIVE) Urine Bilirubin (NEGATIVE) Urine Urobilinogen (0.2-1.0) EU/dL Ur Leukocyte Esterase (NEGATIVE) Urine RBC (0-5) Urine WBC (0-5) Ur Epithelial Cells Amorphous Sediment Urine Bacteria Urine Mucus Urine Opiates Screen (NEGATIVE) Ur Oxycodone Screen (NEGATIVE) Urine Methadone Screen (NEGATIVE) Ur Propoxyphene Screen (NEGATIVE) Ur Barbiturates Screen (NEGATIVE) Ur Tricyclics Screen (NEGATIVE) Ur Phencyclidine Scrn (NEGATIVE) Ur Amphetamine Screen (NEGATIVE) U Methamphetamines Scrn (NEGATIVE) Urine MDMA Screen (NEGATIVE) U Benzodiazepines Scrn (NEGATIVE) U Cocaine Metab Screen (NEGATIVE) U Marijuana (THC) Screen (NEGATIVE) Ethyl Alcohol mg/dL SARS-CoV-2 RNA (ZANDER) (NEGATIVE) Blood Type O POSITIVE Gel Antibody Screen Negative 08/01/20 Range/Units 04:08 WBC (4.5-11.0) K/uL RBC (4.30-5.90) M/uL Hgb (12.0-15.0) g/dL Hct (40.0-54.0) % MCV (80-98) fL MCH (27-31) pg MCHC (32-36) % Plt Count (150-400) K/uL Neut % (Auto) (36-66) % Lymph % (Auto) (24-44) % Bertie % (Auto) (2-6) % Eos % (Auto) (2-4) % Baso % (Auto) (0-1) % PT (9.5-12.0) sec INR (0.80-1.20) Sodium 143 (140-148) mmol/L Potassium 3.3 L (3.6-5.2) mmol/L Chloride 108 (100-108) mmol/L Carbon Dioxide 21 (21-32) mmol/L Anion Gap 17.3 H (5.0-14.0) mmol/L BUN 23 H (7-18) mg/dL Creatinine 1.6 H (0.8-1.3) mg/dL Est Cr Clr Drug Dosing 45.81 mL/min Estimated GFR (MDRD) 43 L (>60) Glucose 118 H (74-106) mg/dL Calcium 8.1 L (8.5-10.1) mg/dL Iron (65-175) ug/dL TIBC (250-450) ug/dl % Saturation (20-55) % Ferritin (8-388) ng/ml Total Bilirubin (0.2-1.0) mg/dL AST (15-37) U/L ALT (12-78) U/L Alkaline Phosphatase (46-116) U/L Total Protein (6.4-8.2) g/dL Albumin (3.4-5.0) g/dL Globulin (2.3-3.5) g/dL Albumin/Globulin Ratio (1.2-2.2) Amylase (25-115) U/L Lipase (73-393) U/L Urine Color (YELLOW) Urine Appearance (CLEAR) Urine pH (5.0-8.0) Ur Specific [place] (1.008-1.030) Urine Protein (NEGATIVE) mg/dL Urine Glucose (UA) (NEGATIVE) mg/dL Urine Ketones (NEGATIVE) mg/dL Urine Occult Blood (NEGATIVE) Urine Nitrite (NEGATIVE) Urine Bilirubin (NEGATIVE) Urine Urobilinogen (0.2-1.0) EU/dL Ur Leukocyte Esterase (NEGATIVE) Urine RBC (0-5) Urine WBC (0-5) Ur Epithelial Cells Amorphous Sediment Urine Bacteria Urine Mucus Urine Opiates Screen (NEGATIVE) Ur Oxycodone Screen (NEGATIVE) Urine Methadone Screen (NEGATIVE) Ur Propoxyphene Screen (NEGATIVE) Ur Barbiturates Screen (NEGATIVE) Ur Tricyclics Screen (NEGATIVE) Ur Phencyclidine Scrn (NEGATIVE) Ur Amphetamine Screen (NEGATIVE) U Methamphetamines Scrn (NEGATIVE) Urine MDMA Screen (NEGATIVE) U Benzodiazepines Scrn (NEGATIVE) U Cocaine Metab Screen (NEGATIVE) U Marijuana (THC) Screen (NEGATIVE) Ethyl Alcohol mg/dL SARS-CoV-2 RNA (ZANDER) (NEGATIVE) Blood Type Gel Antibody Screen Med Orders - Current: Current Medications Acetaminophen (Tylenol) 650 mg PO Q4H PRN PRN Reason: Pain (Mild 1-3)/fever Hydrocodone Bitart/Acetaminophen ([place] 325-5 Mg) 2 tab PO Q4H PRN PRN Reason: Pain (moderate 4-6) Last Admin: 08/01/20 10:05 Dose: 2 tab Documented by: Albuterol (Proventil Neb Soln) 2.5 mg NEB Q4H PRN PRN Reason: Shortness Of Breath/wheezing Albuterol/Ipratropium (Duoneb 3.0-0.5 Mg/3 Ml) 3 ml NEB QID PRN PRN Reason: Shortness Of Breath/wheezing Bisacodyl (Dulcolax) 5 mg PO DAILY PRN PRN Reason: Constipation Docusate Sodium (Colace) 100 mg PO BID PRN PRN Reason: Constipation Ferrous Sulfate (Ferrous Sulfate) 325 mg PO BIDMEALS [facility] Gabapentin (Neurontin) 100 mg PO TID [facility] Last Admin: 08/01/20 10:00 Dose: 100 mg Documented by: Ferric Sodium Gluconate Complex 250 mg/ Sodium Chloride 120 mls @ 25 mls/hr IV ONETIME ONE Stop: 08/01/20 16:17 Ferric Sodium Gluconate Complex 250 mg/ Sodium Chloride 120 mls @ 25 mls/hr IV ONETIME ONE Stop: 08/02/20 14:47 Lorazepam (Ativan) 1 mg IV Q6H PRN PRN Reason: Agitation Melatonin (Melatonin) 6 mg PO BEDTIME [facility] Last Admin: 08/01/20 01:04 Dose: 6 mg Documented by: Morphine Sulfate (Morphine) 2 mg IVPUSH Q2H PRN PRN Reason: Pain (severe 7-10) Ondansetron HCl (Zofran Odt) 4 mg PO Q6H PRN PRN Reason: Nausea able to take PO Ondansetron HCl (Zofran) 4 mg IV Q4H PRN PRN Reason: Nausea/Vomiting Pantoprazole Sodium (Protonix Iv) 40 mg IV Q12H [facility] Last Admin: 08/01/20 10:01 Dose: 40 mg Documented by: Potassium Chloride (Klor-Con M20) 40 meq PO ONETIME ONE Stop: 08/01/20 17:01 Discontinued Medications Sodium Chloride (Normal Saline) 1,000 mls @ 125 mls/hr IV ASDIRECTED [facility] Last Admin: 08/01/20 09:15 Dose: 125 mls/hr Documented by: Pantoprazole Sodium (Protonix Iv) 40 mg IV BID [facility] Last Admin: 08/01/20 01:04 Dose: 40 mg Documented by: Potassium Chloride (Klor-Con M20) 40 meq PO ONETIME ONE Stop: 08/01/20 09:01 Last Admin: 08/01/20 10:06 Dose: 40 meq Documented by: - Exam Quality Assessment: DVT Prophylaxis General: Alert, Oriented, Cooperative, Mild Distress Lungs: Clear to Auscultation, Normal Respiratory Effort, Decreased Breath Sounds. No: Rales, Rhonchi, Wheezing Cardiovascular: Regular Rate, Regular Rhythm, No Murmurs GI/Abdominal Exam: Soft, Non-Tender, No Organomegaly, No Distention Extremities: Non-Tender, No Pedal Edema Sepsis Event Note - Evaluation Sepsis Screening Result: No Definite Risk - Focused Exam Vital Signs: Vital Signs Temp Pulse Resp BP Pulse Ox 08/01/20 10:15 98.1 F 63 16 130/65 95 08/01/20 08:00 96.9 F 66 20 131/63 98 08/01/20 04:13 98.8 F 80 16 111/52 L 99 08/01/20 00:13 97.8 F 66 16 130/45 L 97 - Problem List Review Problem List Initiated/Reviewed/Updated: Yes - My Orders Last 24 Hours: My Active Orders 08/01/20 10:19 Sodium Ferric Gluconate Cmplex [Ferrlecit IV] 250 mg Sodium Chloride 0.9% [Normal Saline] 100 ml IV ONETIME 08/01/20 10:20 Convert IV to Saline Lock [OM.PC] Routine 08/01/20 17:00 Ferrous Sulfate 325 mg PO BIDMEALS Potassium Chloride [Klor-Con M20] 40 meq PO ONETIME ONE 08/02/20 05:00 BASIC METABOLIC PANEL,BMP [CHEM] Timed CBC WITH AUTO DIFF [HEME] Timed 08/02/20 10:00 Sodium Ferric Gluconate Cmplex [Ferrlecit IV] 250 mg Sodium Chloride 0.9% [Normal Saline] 100 ml IV ONETIME - Plan Plan:: ASSESSMENT AND PLAN Anemia and possible GI Bleed-hemoglobin has remained stable since admission with no evidence of active bleeding. It appears that this is at least somewhat chronic and recent labs have been consistent with current levels. He does have microcytic indices, iron level was obtained and found to be low. -Iron supplement p.o. twice daily -IV iron infusion today and tomorrow -Saline lock IV -IV Protonic 40mg bid -Blood Type and screen -repeat in am CBC, BMP Alcohol Abuse-no evidence of significant withdrawal -CIWAA protocol -Melatonin 6mg po at bedtime Foot Pain -Increase Neurontin to 200mg po TID -Tylenol every 4 hours as needed History of Advanced Laryngeal carcinoma- 07/2019 -open tracheostomy [facility] -social welfare clerk referral MAINTENANCE ISSUES -DVT prophylaxis; SCD -GI prophylaxis; IV PPI therapy every 12 hours -Harp catheter; not indicated -Nutrition; regular diet -Nicotine- non smoker CODE STATUS-DNR/DNI ADMISSION STATUS-this patient will be admitted to observation status, expect no more than a one night hospital stay for evaluation and management of problems as outlined above. DISPOSITION-anticipate discharge to home or assisted living after the hospital stay. PRIMARY CARE PROVIDER- non noted HOSPITALIST- Dr. Herrera
[2020-08-01] MEDS ORDERED: Sodium Ferric Gluconate Cmplex 250 MG in Sodium Chloride 0.9% 100 ML IV ONE (11:30)
[2020-08-01] MEDS ORDERED: Pantoprazole 40 MG Tab.CR PO SCH (16:30)
[2020-08-01] MEDS: Ferrous Sulfate 325 MG Tab PO SCH (17:39)
[2020-08-01] MEDS: Potassium Chloride 20 MEQ Tab.ER PO ONE ×2 (17:39→18:06)
[2020-08-01] MEDS ORDERED: Potassium Chloride 20 MEQ Tab.ER ONE (18:02)
[2020-08-02] MEDS: Gabapentin 100 MG Cap PO SCH ×3 (09:25→21:18)
[2020-08-02] MEDS: Ferrous Sulfate 325 MG Tab PO SCH ×2 (09:26→16:19)
[2020-08-02] MEDS: Pantoprazole 40 MG Vial IV SCH ×2 (09:26→21:18)
[2020-08-02] MEDS ORDERED: Sodium Ferric Gluconate Cmplex 250 MG in Sodium Chloride 0.9% 100 ML IV ONE (10:00)
--- NOTE | 2020-08-02 10:22 | PCM.PN ---
- General Info Date of Service: 08/02/20 Subjective Update: Mr Spears has been stable over the last 24 hours, hemoglobin essentially unchanged with no evidence of active bleeding. He initially refused endoscopy but now is willing to undergo EGD and colonoscopy for evaluation of his iron deficiency anemia. Functional Status: Reports: Tolerating Diet, Ambulating, Urinating - Review of Systems General: Reports: Weakness, Fatigue. Denies: Fever, Chills Cardiovascular: Reports: No Symptoms Gastrointestinal: Reports: No Symptoms Genitourinary: Reports: No Symptoms - Patient Data Vitals - Most Recent: Last Vital Signs Temp 98.0 F 08/02/20 07:25 Pulse 63 08/02/20 07:25 Resp 16 08/02/20 07:25 BP 148/64 H 08/02/20 07:25 Pulse Ox 98 08/02/20 10:00 Weight - Most Recent: 191 lb 9.6 oz I&O - Last 24 Hours: Intake & Output 08/01/20 08/02/20 08/02/20 22:59 06:59 14:59 Intake Total 480 120 Output Total 300 500 300 Balance 180 -500 -180 Lab Results Last 24 Hours: Laboratory Results - last 24 hr 08/02/20 08/02/20 Range/Units 04:03 04:03 WBC 3.5 L (4.5-11.0) K/uL RBC 3.90 L (4.30-5.90) M/uL Hgb 8.1 L (12.0-15.0) g/dL Hct 27.5 L (40.0-54.0) % MCV 71 L (80-98) fL MCH 21 L (27-31) pg MCHC 30 L (32-36) % Plt Count 398 (150-400) K/uL Neut % (Auto) 65 (36-66) % Lymph % (Auto) 17 L (24-44) % [place] % (Auto) 14 H (2-6) % Eos % (Auto) 4 (2-4) % Baso % (Auto) 0 (0-1) % Sodium 141 (140-148) mmol/L Potassium 4.2 (3.6-5.2) mmol/L Chloride 108 (100-108) mmol/L Carbon Dioxide 22 (21-32) mmol/L Anion Gap 11.0 (5.0-14.0) mmol/L BUN 15 (7-18) mg/dL Creatinine 1.5 H (0.8-1.3) mg/dL Est Cr Clr Drug Dosing 48.86 mL/min Estimated GFR (MDRD) 46 L (>60) Glucose 124 H (74-106) mg/dL Calcium 8.1 L (8.5-10.1) mg/dL Med Orders - Current: Current Medications Acetaminophen (Tylenol) 650 mg PO Q4H PRN PRN Reason: Pain (Mild 1-3)/fever Hydrocodone Bitart/Acetaminophen ([place] 325-5 Mg) 2 tab PO Q4H PRN PRN Reason: Pain (moderate 4-6) Last Admin: 08/01/20 10:05 Dose: 2 tab Documented by: Albuterol (Proventil Neb Soln) 2.5 mg NEB Q4H PRN PRN Reason: Shortness Of Breath/wheezing Albuterol/Ipratropium (Duoneb 3.0-0.5 Mg/3 Ml) 3 ml NEB QID PRN PRN Reason: Shortness Of Breath/wheezing Bisacodyl (Dulcolax) 5 mg PO DAILY PRN PRN Reason: Constipation Bisacodyl (Dulcolax) 10 mg PO ONETIME ONE Stop: 08/02/20 10:16 Bisacodyl (Dulcolax) 10 mg PO ONETIME ONE Stop: 08/02/20 20:01 Docusate Sodium (Colace) 100 mg PO BID PRN PRN Reason: Constipation Ferrous Sulfate (Ferrous Sulfate) 325 mg PO BIDMEALS [facility] Last Admin: 08/02/20 09:26 Dose: 325 mg Documented by: Gabapentin (Neurontin) 200 mg PO TID [facility] Last Admin: 08/02/20 09:25 Dose: 200 mg Documented by: Ferric Sodium Gluconate Complex 250 mg/ Sodium Chloride 120 mls @ 25 mls/hr IV ONETIME ONE Stop: 08/02/20 14:47 Last Admin: 08/02/20 10:05 Dose: 25 mls/hr Documented by: Lorazepam (Ativan) 1 mg IV Q6H PRN PRN Reason: Agitation Melatonin (Melatonin) 6 mg PO BEDTIME [facility] Last Admin: 08/01/20 21:51 Dose: 6 mg Documented by: Morphine Sulfate (Morphine) 2 mg IVPUSH Q2H PRN PRN Reason: Pain (severe 7-10) Ondansetron HCl (Zofran Odt) 4 mg PO Q6H PRN PRN Reason: Nausea able to take PO Ondansetron HCl (Zofran) 4 mg IV Q4H PRN PRN Reason: Nausea/Vomiting Pantoprazole Sodium (Protonix Iv) 40 mg IV Q12H [facility] Last Admin: 08/02/20 09:26 Dose: 40 mg Documented by: Polyethylene Glycol (Miralax) 238 gm PO ONETIME ONE Stop: 08/02/20 17:01 Discontinued Medications Gabapentin (Neurontin) 100 mg PO TID [facility] Last Admin: 08/01/20 10:00 Dose: 100 mg Documented by: Sodium Chloride (Normal Saline) 1,000 mls @ 125 mls/hr IV ASDIRECTED [facility] Last Admin: 08/01/20 09:15 Dose: 125 mls/hr Documented by: Ferric Sodium Gluconate Complex 250 mg/ Sodium Chloride 120 mls @ 25 mls/hr IV ONETIME ONE Stop: 08/01/20 16:17 Last Admin: 08/01/20 11:52 Dose: 25 mls/hr Documented by: Pantoprazole Sodium (Protonix Iv) 40 mg IV BID [facility] Last Admin: 08/01/20 01:04 Dose: 40 mg Documented by: Potassium Chloride (Klor-Con M20) 40 meq PO ONETIME ONE Stop: 08/01/20 09:01 Last Admin: 08/01/20 10:06 Dose: 40 meq Documented by: Potassium Chloride (Klor-Con M20) 40 meq PO ONETIME ONE Stop: 08/01/20 17:01 Last Admin: 08/01/20 18:06 Dose: 40 meq Documented by: Potassium Chloride (Klor-Con M20) Confirm Administered Dose 20 meq .ROUTE .STK- MED ONE Stop: 08/01/20 18:03 Last Admin: 08/01/20 18:06 Dose: Not Given Documented by: - Exam Quality Assessment: DVT Prophylaxis General: Alert, Oriented, Cooperative, No Acute Distress Lungs: Clear to Auscultation, Normal Respiratory Effort Cardiovascular: Regular Rate, Regular Rhythm, No Murmurs GI/Abdominal Exam: Soft, Non-Tender, No Organomegaly, No Distention Extremities: Non-Tender, No Pedal Edema Sepsis Event Note - Evaluation Sepsis Screening Result: No Definite Risk - Focused Exam Vital Signs: Vital Signs Temp Pulse Resp BP Pulse Ox 08/02/20 10:00 98 08/02/20 07:25 98.0 F 63 16 148/64 H 95 08/02/20 04:00 15 08/02/20 00:53 97.6 F 66 16 129/60 96 - Problem List Review Problem List Initiated/Reviewed/Updated: Yes - My Orders Last 24 Hours: My Active Orders 08/01/20 10:20 Convert IV to Saline Lock [OM.PC] Routine 08/01/20 10:32 Discontinue Telemetry Monitoring [Cardiac Monitoring Discontinue] [RC] Click to Edit 08/01/20 14:00 Gabapentin [Neurontin] 200 mg PO TID 08/01/20 17:00 Ferrous Sulfate 325 mg PO BIDMEALS 08/02/20 Breakfast Clear Liquid Diet [DIET] 08/02/20 10:00 Sodium Ferric Gluconate Cmplex [Ferrlecit IV] 250 mg Sodium Chloride 0.9% [Normal Saline] 100 ml IV ONETIME 08/02/20 10:15 bisacodyL [Dulcolax] 10 mg PO ONETIME ONE 08/02/20 10:16 Verify Patient Consent Obtain [RC] ASDIRECTED Consult to Physician [CONS] Routine Schedule Procedure [COMM] Routine 08/02/20 10:18 Notify Provider Consults [RC] ASDIRECTED 08/02/20 17:00 polyethylene glycoL 3350 [MiraLAX] 238 gm PO ONETIME ONE 08/02/20 20:00 bisacodyL [Dulcolax] 10 mg PO ONETIME ONE 08/03/20 Breakfast NPO After Midnight [Nothing per Oral After Midnight Diet] [DIET] - Plan Plan:: ASSESSMENT AND PLAN Anemia and possible GI Bleed-hemoglobin has remained stable since admission with no evidence of active bleeding. It appears that this is at least somewhat chronic and recent labs have been consistent with current levels. He does have microcytic indices, iron level was obtained and found to be low. He initially refused EGD and colonoscopy but is now willing to proceed -Iron supplement p.o. twice daily -IV iron infusion today -Saline lock IV -IV Protonic 40mg bid -Blood Type and screen -Colonoscopy prep -Consult Dr. Tai for EGD and colonoscopy in a.m. Alcohol Abuse-no evidence of significant withdrawal -CIWAA protocol -Melatonin 6mg po at bedtime Foot Pain -Increase Neurontin to 200mg po TID -Tylenol every 4 hours as needed History of Advanced Laryngeal carcinoma- 07/2019 -open tracheostomy Homeless- currently living in [facility] -manager social referral MAINTENANCE ISSUES -DVT prophylaxis; SCD -GI prophylaxis; IV PPI therapy every 12 hours -Harp catheter; not indicated -Nutrition; regular diet -Nicotine- non smoker CODE STATUS-DNR/DNI ADMISSION STATUS-this patient will be admitted to observation status, expect no more than a one night hospital stay for evaluation and management of problems as outlined above. DISPOSITION-anticipate discharge to home or assisted living after the hospital stay. PRIMARY CARE PROVIDER- non noted HOSPITALIST- Dr. Herrera
[2020-08-02] MEDS ORDERED: Bisacodyl 5 MG Tab PO ONE ×2 (11:00→20:00)
[2020-08-02] MEDS ORDERED: Polyethylene Glycol 3350 Powder 238 GM Bot PO ONE (17:00)
[2020-08-02] MEDS ORDERED: Polyethylene Glycol 3350 Powder 119 GM Bottle PO ONE (20:41)
[2020-08-02] MEDS: Melatonin 3 MG Tab PO SCH (21:19)
[2020-08-03] MEDS: Gabapentin 100 MG Cap PO SCH ×3 (08:30→22:00)
[2020-08-03] MEDS: Ferrous Sulfate 325 MG Tab PO SCH ×2 (08:30→16:57)
--- NOTE | 2020-08-03 09:21 | CR ---
CHEST: 2 view CLINICAL HISTORY:Dyspnea COMPARISON:06/30/2020 FINDINGS: Heart size and pulmonary vascularity are normal. There are atherosclerotic changes in the aorta. There is some mild interstitial prominence which is chronic.. No infiltrates are seen. Tracheostomy tube has been removed Impression: Mild chronic interstitial changes No acute cardiopulmonary process
[2020-08-03] MEDS: Pantoprazole 40 MG Vial IV SCH (09:32)
[2020-08-03] MEDS ORDERED: Midazolam 1 MG/ML 2 ML SDV ONE (09:37)
[2020-08-03] MEDS ORDERED: fentaNYL 100 MCG/2 ML SDV ONE (09:37)
[2020-08-03] MEDS ORDERED: Propofol 200 MG/20 ML SDV ONE (09:37)
[2020-08-03] MEDS ORDERED: Lactated Ringers 1,000 ML ONE (10:21)
--- NOTE | 2020-08-03 11:37 | PN ---
DATE OF SERVICE: 08/03/2020 SUBJECTIVE: He is n.p.o. for EGD and colonoscopy. He has had some GI bleeding. Hemoglobin 8.1 this morning. He is getting 1 unit of packed red blood cells. Creatinine was 1.5. GFR is 46. REVIEW OF SYSTEMS: HEENT: Negative. NECK: Negative. HEART: No chest pain or shortness of breath. LUNGS: No cough. GASTROINTESTINAL: Has been having frequent stools after colonoscopy prep. Denies any pain. EXTREMITIES: No joint pain or swelling. NEUROLOGIC: Denies any headache, dizziness, or loss of coordination. SKIN: No rash. PSYCHIATRIC: Denies insomnia, depression, or anxiety. Remainder of review of systems negative for any pertinent positives or negatives. OBJECTIVE: GENERAL: Jamie Spears is a 74-year-old male. He is quiet, resting in bed. VITAL SIGNS: TPR is 98.7, 70, 16, and blood pressure 133/74. HEENT: Negative. NECK: Supple. HEART: Regular rate and rhythm. LUNGS: Clear. ABDOMEN: Negative. EXTREMITIES: Negative. ASSESSMENT: 1. Low hemoglobin. 2. Iron deficiency anemia, possible gastrointestinal bleed. PLAN: Remain n.p.o. EGD colonoscopy consents are signed. We will evaluate p.r.n. or in the a.m. Sonali Cartagena PA-C /[id number]
--- NOTE | 2020-08-03 12:56 | PCM.PN ---
- General Info Date of Service: 08/03/20 Subjective Update: No acute events overnight. Patient does not have any abdominal pain or nausea. No melena or hematochezia. EGD today showed mild gastritis and a CLOtest was initiated. Colonoscopy showed 2 small polyps but no source of bleeding. No complaints of shortness of breath beyond baseline. He does endorse [id number] pain in both of his feet which has been going on for a few months. Functional Status: Reports: Pain Controlled, Tolerating Diet - Review of Systems General: Reports: Weakness. Denies: Fever Pulmonary: Denies: Shortness of Breath - Patient Data Vitals - Most Recent: Last Vital Signs Temp 37.1 C 08/03/20 11:43 Pulse 56 L 08/03/20 12:06 Resp 16 08/03/20 12:06 BP 155/73 H 08/03/20 12:06 Pulse Ox 96 08/03/20 12:06 Weight - Most Recent: 87.09 kg I&O - Last 24 Hours: Intake & Output 08/02/20 08/03/20 08/03/20 22:59 06:59 14:59 Intake Total 2444 75 Output Total 800 400 0 Balance 1644 -400 75 [place]all Results Last 24 Hours: Microbiology 08/01/20 21:15 Occult Blood - Final Stool / Feces Med Orders - Current: Current Medications Acetaminophen (Tylenol) 650 mg PO Q4H PRN PRN Reason: Pain (Mild 1-3)/fever Hydrocodone Bitart/Acetaminophen ([place] 325-5 Mg) 2 tab PO Q4H PRN PRN Reason: Pain (moderate 4-6) Last Admin: 08/01/20 10:05 Dose: 2 tab Documented by: Albuterol (Proventil Neb Soln) 2.5 mg NEB Q4H PRN PRN Reason: Shortness Of Breath/wheezing Albuterol/Ipratropium (Duoneb 3.0-0.5 Mg/3 Ml) 3 ml NEB QID PRN PRN Reason: Shortness Of Breath/wheezing Bisacodyl (Dulcolax) 5 mg PO DAILY PRN PRN Reason: Constipation Docusate Sodium (Colace) 100 mg PO BID PRN PRN Reason: Constipation [facility] Last Admin: 12/14/20 08:30 Dose: 325 mg Documented by: Gabapentin (Neurontin) 200 mg PO TID [facility] Last Admin: 08/03/20 08:30 Dose: 200 mg Documented by: Lorazepam (Ativan) 1 mg IV Q6H PRN PRN Reason: Agitation Melatonin (Melatonin) 6 mg PO BEDTIME [facility] Last Admin: 08/02/20 21:19 Dose: 6 mg Documented by: Morphine Sulfate (Morphine) 2 mg IVPUSH Q2H PRN PRN Reason: Pain (severe 7-10) Ondansetron HCl (Zofran Odt) 4 mg PO Q6H PRN PRN Reason: Nausea able to take PO Ondansetron HCl (Zofran) 4 mg IV Q4H PRN PRN Reason: Nausea/Vomiting Pantoprazole Sodium (Protonix) 40 mg PO BIDAC [facility] Discontinued Medications Bisacodyl (Dulcolax) 10 mg PO ONETIME ONE Stop: 08/02/20 11:01 Last Admin: 08/02/20 12:00 Dose: 10 mg Documented by: Bisacodyl (Dulcolax) 10 mg PO ONETIME ONE Stop: 08/02/20 20:01 Last Admin: 08/02/20 19:51 Dose: 10 mg Documented by: Fentanyl (Sublimaze) Confirm Administered Dose 100 mcg .ROUTE .STK-MED ONE Stop: 08/03/20 09:38 Gabapentin (Neurontin) 100 mg PO TID [facility] Last Admin: 08/01/20 10:00 Dose: 100 mg Documented by: Sodium Chloride (Normal Saline) 1,000 mls @ 125 mls/hr IV ASDIRECTED [facility] Last Admin: 08/01/20 09:15 Dose: 125 mls/hr Documented by: Ferric Sodium Gluconate Complex 250 mg/ Sodium Chloride 120 mls @ 25 mls/hr IV ONETIME ONE Stop: 08/01/20 16:17 Last Admin: 08/01/20 11:52 Dose: 25 mls/hr Documented by: Ferric Sodium Gluconate Complex 250 mg/ Sodium Chloride 120 mls @ 25 mls/hr IV ONETIME ONE Stop: 08/02/20 14:47 Last Admin: 08/02/20 10:05 Dose: 25 mls/hr Documented by: Lactated Ringer's (Ringers, Lactated) Confirm Administered Dose 1,000 mls @ as directed .ROUTE .STK-MED ONE Stop: 08/03/20 10:22 Midazolam HCl (Versed 1 Mg/Ml) Confirm Administered Dose 2 mg .ROUTE .STK-MED ONE Stop: 08/03/20 09:38 Pantoprazole Sodium (Protonix Iv) 40 mg IV BID [facility] Last Admin: 08/01/20 01:04 Dose: 40 mg Documented by: Pantoprazole Sodium (Protonix Iv) 40 mg IV Q12H [facility] Last Admin: 08/03/20 09:32 Dose: 40 mg Documented by: Polyethylene Glycol (Miralax) 238 gm PO ONETIME ONE Stop: 08/02/20 17:01 Last Admin: 08/02/20 16:18 Dose: 238 gm Documented by: Polyethylene Glycol (Miralax) 119 gm PO ONETIME ONE Stop: 08/02/20 20:42 Last Admin: 08/02/20 21:21 Dose: Not Given Documented by: Potassium Chloride (Klor-Con M20) 40 meq PO ONETIME ONE Stop: 08/01/20 09:01 Last Admin: 08/01/20 10:06 Dose: 40 meq Documented by: Potassium Chloride (Klor-Con M20) 40 meq PO ONETIME ONE Stop: 08/01/20 17:01 Last Admin: 08/01/20 18:06 Dose: 40 meq Documented by: Potassium Chloride (Klor-Con M20) Confirm Administered Dose 20 meq .ROUTE .STK- MED ONE Stop: 08/01/20 18:03 Last Admin: 08/01/20 18:06 Dose: Not Given Documented by: Propofol (Diprivan 20 Ml) Confirm Administered Dose 200 mg .ROUTE .STK-MED ONE Stop: 08/03/20 09:38 - Exam Quality Assessment: Supplemental Oxygen General: Alert, Cooperative, No Acute Distress Lungs: Normal Respiratory Effort, Other (open trach ). No: Wheezing Cardiovascular: Regular Rate, Regular Rhythm GI/Abdominal Exam: Soft, No Distention Extremities: No Pedal Edema, Other (both feet mildly tender to touch of toes, forefoot and heels ). No: Increased Warmth Skin: Warm, Dry Psy/Mental Status: Alert, Normal Affect Sepsis Event Note - Evaluation Sepsis Screening Result: No Definite Risk - Focused Exam Vital Signs: Vital Signs Temp Temp Pulse Resp BP BP Pulse Ox 08/03/20 12:06 56 L 16 155/73 H 96 08/03/20 11:43 37.1 C 60 16 149/74 H 97 08/03/20 11:30 57 L 156/77 H 100 08/03/20 11:15 137/78 08/03/20 11:00 36.5 C 69 12 95 08/03/20 10:55 69 12 102/47 L 99 08/03/20 10:50 64 12 108/60 99 08/03/20 10:45 66 12 94/47 L 99 08/03/20 10:40 36.6 C 66 12 90/45 L 99 08/03/20 07:22 37.1 C 70 16 133/74 92 L 08/03/20 05:00 37.1 C 71 18 123/74 92 L - Problem List Review Problem List Initiated/Reviewed/Updated: Yes - My Orders Last 24 Hours: My Active Orders 08/03/20 16:30 Pantoprazole [ProTONIX] 40 mg PO BIDAC 08/04/20 05:00 CBC W/O DIFF,HEMOGRAM [HEME] Timed (1) VITAMIN B12 [CHEM] Timed - Plan Plan:: ASSESSMENT AND PLAN Anemia and possible GI Bleed-hemoglobin stable with no obvious bleeding. EGD and colonoscopy both negative for source of bleeding. -Iron supplement p.o. twice daily -Saline lock IV -Twice daily PPI -B12 level Alcohol Abuse-no evidence of significant withdrawal -Melatonin 6mg po at bedtime Foot Pain-sounds like neuropathic pain. -Increase Neurontin to 200mg po TID -Tylenol every 4 hours as needed History of Advanced Laryngeal carcinoma- 07/2019 -open tracheostomy site Homeless- currently living in [facility]. -social sciences instructor referral MAINTENANCE ISSUES -DVT prophylaxis; SCD -GI prophylaxis; BIDAC PPI -Harp catheter; not indicated -Nutrition; regular diet ADMISSION STATUS-this patient will be admitted to observation status, expect no more than a one night hospital stay for evaluation and management of problems as outlined above. DISPOSITION-anticipate discharge to home or assisted living after the hospital stay. Yakov Whitt MD
[2020-08-03] MEDS: Pantoprazole 40 MG Tab.CR PO SCH (16:57)
[2020-08-03] MEDS: Melatonin 3 MG Tab PO SCH (22:00)
[2020-08-04] MEDS: Gabapentin 100 MG Cap PO SCH (09:32)
[2020-08-04] MEDS: Pantoprazole 40 MG Tab.CR PO SCH ×2 (09:33→17:27)
[2020-08-04] MEDS: Ferrous Sulfate 325 MG Tab PO SCH ×2 (09:33→17:27)
--- NOTE | 2020-08-04 12:17 | PCM.PN ---
- General Info Date of Service: 08/04/20 Subjective Update: No acute events overnight. Patient feels well and offers no concerns other than persistent foot pain. B12 level was in the normal range. No nausea or vomiting. No bleeding. Hemoglobin stable. Still no good discharge plan. Patient is homeless and has no resources. Multiple attempts have been made by his [facility] farm machinery set up mechanic with additional attempts while hospitalized from the discharge planning team. Homeless custodial may be considered after [facility]. Functional Status: Reports: Pain Controlled, Tolerating Diet - Patient Data Vitals - Most Recent: Last Vital Signs Temp 37.2 C 08/04/20 11:31 Pulse 89 08/04/20 11:31 Resp 16 08/04/20 11:31 BP 132/60 08/04/20 11:31 Pulse Ox 95 08/04/20 11:31 Weight - Most Recent: 87.09 kg I&O - Last 24 Hours: Intake & Output 08/03/20 08/04/20 08/04/20 22:59 06:59 14:59 Intake Total 600 200 Balance 600 200 Lab Results Last 24 Hours: Laboratory Results - last 24 hr 08/04/20 08/04/20 Range/Units 04:00 04:00 WBC 4.5 (4.5-11.0) K/uL RBC 4.09 L (4.30-5.90) M/uL Hgb 8.5 L (12.0-15.0) g/dL Hct 29.1 L (40.0-54.0) % MCV 71 L (80-98) fL MCH 21 L (27-31) pg MCHC 29 L (32-36) % Plt Count 451 H (150-400) K/uL Vitamin B12 427 (193-986) pg/ml Kendall Results Last 24 Hours: Microbiology 08/03/20 10:14 CLOtest - Final Stomach NEGATIVE CLOTEST REFERENCE RANGE: NEGATIVE Med Orders - Current: Current Medications Acetaminophen (Tylenol) 650 mg PO Q4H PRN PRN Reason: Pain (Mild 1-3)/fever Hydrocodone Bitart/Acetaminophen ([place] 325-5 Mg) 2 tab PO Q4H PRN PRN Reason: Pain (moderate 4-6) Last Admin: 08/01/20 10:05 Dose: 2 tab Documented by: Albuterol (Proventil Neb Soln) 2.5 mg NEB Q4H PRN PRN Reason: Shortness Of Breath/wheezing Albuterol/Ipratropium (Duoneb 3.0-0.5 Mg/3 Ml) 3 ml NEB QID PRN PRN Reason: Shortness Of Breath/wheezing Bisacodyl (Dulcolax) 5 mg PO DAILY PRN PRN Reason: Constipation Docusate Sodium (Colace) 100 mg PO BID PRN PRN Reason: Constipation Ferrous Sulfate (Ferrous Sulfate) 325 mg PO BIDMEALS [facility] Last Admin: 08/04/20 09:33 Dose: 325 mg Documented by: Lorazepam (Ativan) 1 mg IV Q6H PRN PRN Reason: Agitation Melatonin (Melatonin) 6 mg PO BEDTIME [facility] Last Admin: 08/03/20 22:00 Dose: 6 mg Documented by: Morphine Sulfate (Morphine) 2 mg IVPUSH Q2H PRN PRN Reason: Pain (severe 7-10) Ondansetron HCl (Zofran Odt) 4 mg PO Q6H PRN PRN Reason: Nausea able to take PO Ondansetron HCl (Zofran) 4 mg IV Q4H PRN PRN Reason: Nausea/Vomiting Pantoprazole Sodium (Protonix) 40 mg PO BIDAC [facility] Last Admin: 08/04/20 09:33 Dose: 40 mg Documented by: Discontinued Medications Bisacodyl (Dulcolax) 10 mg PO ONETIME ONE Stop: 08/02/20 11:01 Last Admin: 08/02/20 12:00 Dose: 10 mg Documented by: Bisacodyl (Dulcolax) 10 mg PO ONETIME ONE Stop: 08/02/20 20:01 Last Admin: 08/02/20 19:51 Dose: 10 mg Documented by: Fentanyl (Sublimaze) Confirm Administered Dose 100 mcg .ROUTE .STK-MED ONE Stop: 08/03/20 09:38 Gabapentin (Neurontin) 100 mg PO TID [facility] Last Admin: 08/01/20 10:00 Dose: 100 mg Documented by: Gabapentin (Neurontin) 200 mg PO TID [facility] Last Admin: 08/04/20 09:32 Dose: 200 mg Documented by: Sodium Chloride (Normal Saline) 1,000 mls @ 125 mls/hr IV ASDIRECTED [facility] Last Admin: 08/01/20 09:15 Dose: 125 mls/hr Documented by: Ferric Sodium Gluconate Complex 250 mg/ Sodium Chloride 120 mls @ 25 mls/hr IV ONETIME ONE Stop: 08/01/20 16:17 Last Admin: 08/01/20 11:52 Dose: 25 mls/hr Documented by: Ferric Sodium Gluconate Complex 250 mg/ Sodium Chloride 120 mls @ 25 mls/hr IV ONETIME ONE Stop: 08/02/20 14:47 Last Admin: 08/02/20 10:05 Dose: 25 mls/hr Documented by: Lactated Ringer's (Ringers, Lactated) Confirm Administered Dose 1,000 mls @ as directed .ROUTE .STK-MED ONE Stop: 08/03/20 10:22 Midazolam HCl (Versed 1 Mg/Ml) Confirm Administered Dose 2 mg .ROUTE .STK-MED ONE Stop: 08/03/20 09:38 Pantoprazole Sodium (Protonix Iv) 40 mg IV BID [facility] Last Admin: 08/01/20 01:04 Dose: 40 mg Documented by: Pantoprazole Sodium (Protonix Iv) 40 mg IV Q12H [facility] Last Admin: 08/03/20 09:32 Dose: 40 mg Documented by: Polyethylene Glycol (Miralax) 238 gm PO ONETIME ONE Stop: 08/02/20 17:01 Last Admin: 08/02/20 16:18 Dose: 238 gm Documented by: Polyethylene Glycol (Miralax) 119 gm PO ONETIME ONE Stop: 08/02/20 20:42 Last Admin: 08/02/20 21:21 Dose: Not Given Documented by: Potassium Chloride (Klor-Con M20) 40 meq PO ONETIME ONE Stop: 08/01/20 09:01 Last Admin: 08/01/20 10:06 Dose: 40 meq Documented by: Potassium Chloride (Klor-Con M20) 40 meq PO ONETIME ONE Stop: 08/01/20 17:01 Last Admin: 08/01/20 18:06 Dose: 40 meq Documented by: Potassium Chloride (Klor-Con M20) Confirm Administered Dose 20 meq .ROUTE .STK- MED ONE Stop: 08/01/20 18:03 Last Admin: 08/01/20 18:06 Dose: Not Given Documented by: Propofol (Diprivan 20 Ml) Confirm Administered Dose 200 mg .ROUTE .STK-MED ONE Stop: 08/03/20 09:38 - Exam Quality Assessment: No: Supplemental Oxygen General: Alert, Oriented, Cooperative, No Acute Distress Neck: Other (open trach site ) Lungs: Normal Respiratory Effort GI/Abdominal Exam: Soft, No Distention Extremities: No Pedal Edema Skin: Warm, Dry Psy/Mental Status: Alert, Normal Affect Sepsis Event Note - Evaluation Sepsis Screening Result: No Definite Risk - Focused Exam Vital Signs: Vital Signs Temp Pulse Resp BP Pulse Ox 08/04/20 11:31 37.2 C 89 16 132/60 95 08/04/20 07:18 37.0 C 90 16 135/71 97 08/04/20 04:00 37.1 C 78 16 155/69 H 95 - Problem List Review Problem List Initiated/Reviewed/Updated: Yes - My Orders Last 24 Hours: My Active Orders 08/03/20 16:30 Pantoprazole [ProTONIX] 40 mg PO BIDAC 08/04/20 Breakfast Regular Diet [DIET] 08/04/20 14:00 Gabapentin [Neurontin] 300 mg PO TID - Plan Plan:: ASSESSMENT AND PLAN Iron deficiency anemia and possible GI Bleed-hemoglobin stable with no obvious bleeding. EGD and colonoscopy both negative for source of bleeding. -Iron supplement p.o. twice daily -Saline lock IV -Twice daily PPI Alcohol dependence-no evidence of significant withdrawal -Melatonin 6mg po at bedtime Foot Pain-sounds like neuropathic pain. -Increase Neurontin to 300mg po TID -Tylenol every 4 hours as needed History of Advanced Laryngeal carcinoma- 07/2019 -open tracheostomy site Homeless- currently living in [facility]. -social work instructor referral -Homeless custodial? MAINTENANCE ISSUES -DVT prophylaxis; SCD -GI prophylaxis; BIDAC PPI -Harp catheter; not indicated -Nutrition; regular diet ADMISSION STATUS-this patient will be admitted to observation status, expect no more than a one night hospital stay for evaluation and management of problems as outlined above. DISPOSITION-anticipate discharge to homeless custodial after the hospital stay. He is stable for discharge at this time but unfortunately there is no safe discharge plan as of yet. Yakov Whitt MD
[2020-08-04] MEDS: Gabapentin 300 MG Cap PO SCH ×2 (14:50→21:13)
[2020-08-04] MEDS: Melatonin 3 MG Tab PO SCH (21:13)
[2020-08-04] MEDS: Acetaminophen/HYDROcodone 325-5 MG Tab PO PRN (21:17)
[2020-08-05] MEDS: Pantoprazole 40 MG Tab.CR PO SCH (08:27)
[2020-08-05] MEDS: Gabapentin 300 MG Cap PO SCH (08:27)
[2020-08-05] MEDS: Ferrous Sulfate 325 MG Tab PO SCH (08:27)
--- NOTE | 2020-08-05 09:52 | PCM.DCSUM1 ---
Discharge Summary - Hospital Course Brief History: 74-year-old male with history of alcohol dependence, sporadic methamphetamine use and tracheostomy status secondary to laryngeal cancer who presented via law enforcement for a welfare check after he was found in a camper with no heat or water. Diagnosis: Stroke: No - Discharge Data Discharge Date: 08/05/20 Discharge Disposition: DC/Tfer to Other 70 Condition: Fair - Referral to Home Health Primary Care Physician: PCP None - Discharge Diagnosis/Problem(s) (1) Iron deficiency anemia SNOMED Code(s): 35515368 ICD Code: D50.9 - IRON DEFICIENCY ANEMIA, UNSPECIFIED Status: Acute Qualifiers: Iron deficiency anemia type: unspecified iron deficiency Qualified Code(s): D50.9 - Iron deficiency anemia, unspecified (2) GI bleed SNOMED Code(s): 62126766 ICD Code: K92.2 - GASTROINTESTINAL HEMORRHAGE, UNSPECIFIED Status: Acute Priority: Medium Qualifiers: GI bleed type/associated pathology: unspecified gastrointestinal hemorrhage type Qualified Code(s): K92.2 - Gastrointestinal hemorrhage, unspecified (3) Alcohol dependence SNOMED Code(s): 55565343 ICD Code: F10.20 - ALCOHOL DEPENDENCE, UNCOMPLICATED Status: Chronic Qualifiers: Substance use status: uncomplicated Qualified Code(s): F10.20 - Alcohol dependence, uncomplicated (4) Methamphetamine abuse, episodic SNOMED Code(s): 746468032 ICD Code: F15.10 - OTHER STIMULANT ABUSE, UNCOMPLICATED Status: Chronic (5) Homeless SNOMED Code(s): 84977820 ICD Code: Z59.0 - HOMELESSNESS Status: Acute Priority: Medium (6) History of laryngeal cancer SNOMED Code(s): 450334272, 013928143 ICD Code: Z85.21 - PERSONAL HISTORY OF MALIGNANT NEOPLASM OF LARYNX Status: Acute Priority: Low - Patient Summary/Data Consults: Consultations 08/01/20 00:25 Consult to Case Management/Game Tester [CONS] Routine Comment: Physician Instructions: Service(s) to be Consulted: Game Tester Reason for Consult: homeless Special Instructions: see Police report 08/02/20 10:16 Consult to Physician [CONS] Routine Consulting Provider: Teodoro Tai Courtesy Call Completed to Consulting Physician: Yes Reason for Consult: Iron deficiency anemia, EGD and colonoscopy Hospital Course: Jamie was brought in by police for evaluation from his unheated trailer house. Work-up in the emergency room was fairly unremarkable other than chronic anemia. Drug screen was positive for amphetamine and methamphetamine. Patient did not have a safe discharge plan so he was admitted for observation. Further studies on the anemia revealed that it was iron deficiency anemia. Blood loss was considered but initially the patient was not interested in working this up. His hemoglobin was stable. On the second day of the hospital stay the patient was interested in working up his anemia so colonoscopy and EGD were undertaken. This did not reveal any source of bleeding. he did have mild antral gastritis but no significant findings otherwise. He did receive 2 doses of IV iron. His hemoglobin has remained stable. There is been no evidence for bleeding. Patient has been stable with regard to vital signs. His case management manager has worked extensively trying to find him placement with his current homeless situation. She has been unsuccessful. Her discharge planning team made some additional attempts here without much success either. The patient was agreeable to treatment for his chemical dependency including methamphetamines and alcohol. The plan is for him to be discharged to [facility]. New medications include pantoprazole and iron supplement. - Patient Instructions Diet: Regular Diet as Tolerated Activity: As Tolerated Showering/Bathing: May Shower - Discharge Plan *PRESCRIPTION DRUG MONITORING PROGRAM REVIEWED*: Not Applicable *COPY OF PRESCRIPTION DRUG MONITORING REPORT IN PATIENT KAYLYN: Not Applicable Prescriptions/Med Rec: Acetaminophen [Arthritis Pain Relief] 650 mg PO Q4H PRN #200 tablet.er PRN Reason: Pain/Fever Ferrous Sulfate 325 mg PO BIDMEALS #60 tablet Pantoprazole [ProTONIX] 40 mg PO BIDAC #60 tab.cr Home Medications: Home Meds Acetaminophen [Arthritis Pain Relief] 650 mg PO Q4H PRN #200 tablet.er 08/05/20 [Rx] Ferrous Sulfate 325 mg PO BIDMEALS #60 tablet 08/05/20 [Rx] Pantoprazole [ProTONIX] 40 mg PO BIDAC #60 tab.cr 08/05/20 [Rx] Patient Handouts: Preventing Iron Deficiency Anemia, Adult, Substance Use Disorder Referrals: PCP,None [Primary Care Provider] - (f/u 1-2 weeks - f/u hospital stay for iron deficiency anemia ) - Discharge Summary/Plan Comment DC Time >30 min.: No - Patient Data Vitals - Most Recent: Last Vital Signs Temp 36.2 C 08/05/20 06:47 Pulse 66 08/05/20 06:47 Resp 16 08/05/20 06:47 BP 146/60 H 08/05/20 06:47 Pulse Ox 94 L 08/05/20 06:47 Weight - Most Recent: 87.09 kg I&O - Last 24 hours: Intake & Output 08/04/20 08/05/20 08/05/20 22:59 06:59 14:59 Intake Total 1500 400 Balance 1500 400 CHRISTIANO Results - Last 24 hrs: Microbiology 08/03/20 10:14 CLOtest - Final Stomach NEGATIVE CLOTEST REFERENCE RANGE: NEGATIVE Med Orders - Current: Current Medications Acetaminophen (Tylenol) 650 mg PO Q4H PRN PRN Reason: Pain (Mild 1-3)/fever Hydrocodone Bitart/Acetaminophen ([place] 325-5 Mg) 2 tab PO Q4H PRN PRN Reason: Pain (moderate 4-6) Last Admin: 08/04/20 21:17 Dose: 2 tab Documented by: Albuterol (Proventil Neb Soln) 2.5 mg NEB Q4H PRN PRN Reason: Shortness Of Breath/wheezing Albuterol/Ipratropium (Duoneb 3.0-0.5 Mg/3 Ml) 3 ml NEB QID PRN PRN Reason: Shortness Of Breath/wheezing Bisacodyl (Dulcolax) 5 mg PO DAILY PRN PRN Reason: Constipation Docusate Sodium (Colace) 100 mg PO BID PRN PRN Reason: Constipation Ferrous Sulfate (Ferrous Sulfate) 325 mg PO BIDMEALS [facility] Last Admin: 08/05/20 08:27 Dose: 325 mg Documented by: Gabapentin (Neurontin) 300 mg PO TID [facility] Last Admin: 08/05/20 08:27 Dose: 300 mg Documented by: Lorazepam (Ativan) 1 mg IV Q6H PRN PRN Reason: Agitation Melatonin (Melatonin) 6 mg PO BEDTIME [facility] Last Admin: 08/04/20 21:13 Dose: 6 mg Documented by: Morphine Sulfate (Morphine) 2 mg IVPUSH Q2H PRN PRN Reason: Pain (severe 7-10) Ondansetron HCl (Zofran Odt) 4 mg PO Q6H PRN PRN Reason: Nausea able to take PO Ondansetron HCl (Zofran) 4 mg IV Q4H PRN PRN Reason: Nausea/Vomiting Pantoprazole Sodium (Protonix) 40 mg PO BIDAC [facility] Last Admin: 08/05/20 08:27 Dose: 40 mg Documented by: Discontinued Medications Bisacodyl (Dulcolax) 10 mg PO ONETIME ONE Stop: 08/02/20 11:01 Last Admin: 08/02/20 12:00 Dose: 10 mg Documented by: Bisacodyl (Dulcolax) 10 mg PO ONETIME ONE Stop: 08/02/20 20:01 Last Admin: 08/02/20 19:51 Dose: 10 mg Documented by: Fentanyl (Sublimaze) Confirm Administered Dose 100 mcg .ROUTE .STK-MED ONE Stop: 08/03/20 09:38 Gabapentin (Neurontin) 100 mg PO TID [facility] Last Admin: 08/01/20 10:00 Dose: 100 mg Documented by: Gabapentin (Neurontin) 200 mg PO TID [facility] Last Admin: 08/04/20 09:32 Dose: 200 mg Documented by: Sodium Chloride (Normal Saline) 1,000 mls @ 125 mls/hr IV ASDIRECTED [facility] Last Admin: 08/01/20 09:15 Dose: 125 mls/hr Documented by: Ferric Sodium Gluconate Complex 250 mg/ Sodium Chloride 120 mls @ 25 mls/hr IV ONETIME ONE Stop: 08/01/20 16:17 Last Admin: 08/01/20 11:52 Dose: 25 mls/hr Documented by: Ferric Sodium Gluconate Complex 250 mg/ Sodium Chloride 120 mls @ 25 mls/hr IV ONETIME ONE Stop: 08/02/20 14:47 Last Admin: 08/02/20 10:05 Dose: 25 mls/hr Documented by: Lactated Ringer's (Ringers, Lactated) Confirm Administered Dose 1,000 mls @ as directed .ROUTE .STK-MED ONE Stop: 08/03/20 10:22 Midazolam HCl (Versed 1 Mg/Ml) Confirm Administered Dose 2 mg .ROUTE .STK-MED ONE Stop: 08/03/20 09:38 Pantoprazole Sodium (Protonix Iv) 40 mg IV BID [facility] Last Admin: 08/01/20 01:04 Dose: 40 mg Documented by: Pantoprazole Sodium (Protonix Iv) 40 mg IV Q12H [facility] Last Admin: 08/03/20 09:32 Dose: 40 mg Documented by: Polyethylene Glycol (Miralax) 238 gm PO ONETIME ONE Stop: 08/02/20 17:01 Last Admin: 08/02/20 16:18 Dose: 238 gm Documented by: Polyethylene Glycol (Miralax) 119 gm PO ONETIME ONE Stop: 08/02/20 20:42 Last Admin: 08/02/20 21:21 Dose: Not Given Documented by: Potassium Chloride (Klor-Con M20) 40 meq PO ONETIME ONE Stop: 08/01/20 09:01 Last Admin: 08/01/20 10:06 Dose: 40 meq Documented by: Potassium Chloride (Klor-Con M20) 40 meq PO ONETIME ONE Stop: 08/01/20 17:01 Last Admin: 08/01/20 18:06 Dose: 40 meq Documented by: Potassium Chloride (Klor-Con M20) Confirm Administered Dose 20 meq .ROUTE .STK- MED ONE Stop: 08/01/20 18:03 Last Admin: 08/01/20 18:06 Dose: Not Given Documented by: Propofol (Diprivan 20 Ml) Confirm Administered Dose 200 mg .ROUTE .STK-MED ONE Stop: 08/03/20 09:38
--- NOTE | 2020-08-15 11:57 | OR ---
DATE OF PROCEDURE: 08/03/2020 SURGEON: Teodoro Tai MD PREOPERATIVE DIAGNOSIS: Anemia. POSTOPERATIVE DIAGNOSIS: 1. Anemia associated with: a. Upper endoscopy showing: I. Small hiatal hernia. II.Patchy mild antral gastritis. b. Colonoscopy showing 2 small polyps involving the ascending colon and rectum and uncomplicated colonic diverticulosis. OPERATIVE PROCEDURES: 1. Esophagogastroduodenoscopy with antral biopsies for CLOtest. 2. Flexible colonoscopy with polypectomy by snare technique x2. ANESTHESIA: IV sedation. INDICATIONS FOR PROCEDURE: A 74-year-old presenting with among other things some anemia. He is undergoing upper and lower endoscopy. Potential risks of the procedure including bleeding and perforation were discussed and the patient wishes to proceed. DETAILS OF PROCEDURE: The patient was taken to the operating room, placed in a left lateral decubitus position. IV sedation was administered after which the upper GI endoscope was passed orally through the length of the esophagus into the stomach with retroflexion view of the fundus, and thereafter through the pyloric channel and into the proximal duodenum. Findings included a small hiatal hernia without significant inflammation of the distal esophagus. In the antrum, there was some mild patchy gastritis. This possibly could be related to recent bleeding, but at present there were no erosions or ulcers and no blood or bleeding present indicating that the gastritis with the recent PPI use to the point where the obvious bleeding sites are not present. Apart from that, the remainder of the upper endoscopy was unremarkable. Biopsies were obtained from the antrum and sent for CLOtest for H. pylori. Minimal bleeding from the biopsy site was controlled with electrocautery. Attention was then taken to the colonoscopy. Initial digital rectal exam was performed and was unremarkable. The colonoscope was then passed into the rectum with retroflexion revealing uncomplicated hemorrhoidal columns. The scope was eventually passed to the cecum. The prep was fairly good with only a small amount of liquid stool present. There was some uncomplicated left colonic diverticulosis. Otherwise, 2 small polyps, both less than 3 to 4 mm were present, one in the ascending colon, one in the rectum. Both of these were excised by means of cautery snare technique and sent for histologic evaluation. Minimal bleeding from the biopsy sites was seen and the procedure then concluded. Recommendation will be to continue the proton pump inhibitor use. If the CLOtest is positive, it should be treated with antibiotic courses for H. pylori. Otherwise, the colonoscopy should be repeated in 3 years. Teodoro Tai MD /[id number]
== END 2020-08-05 10:22 | disposition other institution (70) ==
LOC: JP.ED 19:38 → JP.MS 23:34
PROVIDERS: ADMIT Hospitalist; ATTEND Internal Medicine
DX: D50.0 Iron deficiency anemia secondary to blood loss (chronic) (principal); D12.2 Benign neoplasm of ascending colon; K29.71 Gastritis, unspecified, with bleeding; K44.9 Diaphragmatic hernia without obstruction or gangrene; K62.1 Rectal polyp; K57.31 Diverticulosis of large intestine without perforation or abscess with bleeding; M79.672 Pain in left foot; M79.671 Pain in right foot; F10.20 Alcohol dependence, uncomplicated; F15.10 Other stimulant abuse, uncomplicated; F32.9 Major depressive disorder, single episode, unspecified; E11.9 Type 2 diabetes mellitus without complications; J44.9 Chronic obstructive pulmonary disease, unspecified; Z79.899 Other long term (current) drug therapy; Z20.828 Contact with and (suspected) exposure to other viral communicable diseases; Z93.0 Tracheostomy status; Z98.890 Other specified postprocedural states; Z59.0 Homelessness; Z85.21 Personal history of malignant neoplasm of larynx; Z87.19 Personal history of other diseases of the digestive system; Z86.010 Personal history of colon polyps
CPT/HCPCS: 36415; 43239; 45385; 71046; 80048; 80053; 80305; 80307; 81001; 82150; 82270; 82607; 82728; 83550; 83690; 85025; 85027; 85610; 86850; 86900; 86901; 87081; 88305; 96365; 96366; 96375; 96376; 99222; 99231; 99232; 99238; 99284; 99285; A9270; C9113; G0378; J2250; J2704; J2916; J3010; J7030; J7120; U0002

== ENCOUNTER 2020-08-12 15:18 | Emergency (ER) | payer MEDICARE, MEDICAID ==
--- NOTE | 2020-08-12 16:58 | EDM.PDOC ---
ED HPI GENERAL MEDICAL PROBLEM - General Chief Complaint: ENT Problem Stated Complaint: BREATHING TROUBLE Time Seen by Provider: 08/12/20 15:58 Source of Information: Reports: Patient, RN Notes Reviewed History Limitations: Reports: Physical Impairment - History of Present Illness INITIAL COMMENTS - FREE TEXT/NARRATIVE: 74-year-old gentleman presents emergency department a complaint difficulty with his tracheostomy, he has a chronic trach placement he is currently residing at [facility] for alcohol use and dependence. He states his been producing a lot of phlegm in his trach difficulty for him cleaning it out no fevers feels short of breath no chest pain nausea or vomiting. Communication is written therefore limitation on history and review of systems - Related Data Allergies Allergy/AdvReac Type Severity Reaction Status Date / Time No Known Allergies Allergy Verified 08/12/20 15:41 Home Meds: Home Meds Acetaminophen [Arthritis Pain Relief] 650 mg PO Q4H PRN #200 tablet.er 08/05/20 [Rx] Ferrous Sulfate 325 mg PO BIDMEALS #60 tablet 08/05/20 [Rx] Pantoprazole [ProTONIX] 40 mg PO BIDAC #60 tab.cr 08/05/20 [Rx] Past Medical History HEENT History: Reports: Cataract, Impaired Vision, Other (See Below) Other HEENT History: upper and lower dentures Respiratory History: Reports: COPD, Other (See Below) Other Respiratory History: emphysema. Tracheostomy Gastrointestinal History: Reports: Colon Polyp, Hepatitis, Other (See Below) Other Gastrointestinal History: acid reflux Musculoskeletal History: Reports: Back Pain, Chronic, Neck Pain, Chronic Neurological History: Reports: Concussion, Head Trauma, TIA Psychiatric History: Reports: Anxiety, Depression, Suicide Attempt, Suicidal Ideation Endocrine/Metabolic History: Reports: Diabetes, Type II Immunologic History: Reports: Other (See Below) Other Immunologic History: hep C Oncologic (Cancer) History: Reports: Other (See Below) Other Oncologic History: throat - Infectious Disease History Infectious Disease History: Reports: Hepatitis C - Past Surgical History Head Surgeries/Procedures: Reports: None HEENT Surgical History: Reports: Cataract Surgery, Eye Surgery, Other (See Below) Other HEENT Surgeries/Procedures: eye implants Respiratory Surgical History: Reports: Tracheostomy GI Surgical History: Reports: Colonoscopy Endocrine Surgical History: Reports: None Neurological Surgical History: Reports: None Musculoskeletal Surgical History: Reports: None Oncologic Surgical History: Reports: None Social & Family History - Family History Family Medical History: No Pertinent Family History - Tobacco Use Tobacco Use Status *Q: Never Tobacco User Second Hand Smoke Exposure: No - Caffeine Use Caffeine Use: Reports: Coffee - Recreational Drug Use Recreational Drug Use: No - Living Situation & Occupation Living situation: Reports: Occupation: Disabled (lives in a unheated camper) ED ROS GENERAL - Review of Systems Review Of Systems: See Below Constitutional: Denies: Fever, Chills Respiratory: Reports: Shortness of Breath, Sputum Cardiovascular: Denies: Chest Pain GI/Abdominal: Reports: No Symptoms ED EXAM, GENERAL - Physical Exam Exam: See Below Exam Limited By: Physical Impairment General Appearance: Alert, WD/WN, No Apparent Distress Respiratory/Chest: No Respiratory Distress, Lungs Clear, Normal Breath Sounds, No Accessory Muscle Use, Chest Non-Tender, Other (Phlegm is produced through the stoma and the tracheostomy) Cardiovascular: Regular Rate, Rhythm, No Murmur GI/Abdominal: Soft, Non-Tender Course - Vital Signs Last Recorded V/S: Last Vital Signs Temp 97 F 08/12/20 15:43 Pulse 80 08/12/20 15:43 Resp 28 H 08/12/20 15:43 BP 137/63 08/12/20 15:43 Pulse Ox 95 08/12/20 15:43 - Orders/Labs/Meds Orders: Active Orders 24 hr Category Date Time Status Chest 2V [CR] Urgent Exams 08/12/20 16:49 Taken Labs: Laboratory Tests 08/12/20 08/12/20 08/12/20 Range/Units 16:57 16:57 16:57 WBC 7.0 (4.5-11.0) K/uL RBC 4.54 (4.30-5.90) M/uL Hgb 9.8 L (12.0-15.0) g/dL Hct 33.3 L (40.0-54.0) % MCV 73 L (80-98) fL MCH 22 L (27-31) pg MCHC 29 L (32-36) % Plt Count 561 H (150-400) K/uL Neut % (Auto) 71 H (36-66) % Lymph % (Auto) 17 L (24-44) % Wright % (Auto) 10 H (2-6) % Eos % (Auto) 1 L (2-4) % Baso % (Auto) 1 (0-1) % Sodium 137 L (140-148) mmol/L Potassium 4.1 (3.6-5.2) mmol/L Chloride 102 (100-108) mmol/L Carbon Dioxide 24 (21-32) mmol/L Anion Gap 15.1 H (5.0-14.0) mmol/L BUN 33 H D (7-18) mg/dL Creatinine 1.5 H (0.8-1.3) mg/dL Est Cr Clr Drug Dosing 48.86 mL/min Estimated GFR (MDRD) 46 L (>60) Glucose 105 (74-106) mg/dL Lactic Acid 1.3 (0.4-2.0) mmol/L Calcium 8.9 (8.5-10.1) mg/dL Total Bilirubin 0.2 D (0.2-1.0) mg/dL AST 29 (15-37) U/L ALT 48 (12-78) U/L Alkaline Phosphatase 98 (46-116) U/L Total Protein 7.7 (6.4-8.2) g/dL Albumin 3.8 (3.4-5.0) g/dL Globulin 3.9 H (2.3-3.5) g/dL Albumin/Globulin Ratio 1.0 L (1.2-2.2) Departure - Departure Time of Disposition: 17:39 Disposition: Home, Self-Care 01 Condition: Poor Clinical Impression: Chronic bronchitis Qualifiers: Chronic bronchitis type: simple Qualified Code(s): J41.0 - Simple chronic bronchitis - Discharge Information Instructions: Chronic Bronchitis, Adult Referrals: PCP,None [Primary Care Provider] - Forms: ED Department Discharge Additional Instructions: Take full course of antibiotics, please followup with your primary care provider in 3-5 days if not better, please call return to the emergency department with worsening of symptoms. Sepsis Event Note (ED) - Evaluation Sepsis Screening Result: No Definite Risk - Focused Exam Vital Signs: Vital Signs Temp Pulse Resp BP Pulse Ox 08/12/20 15:43 97 F 80 28 H 137/63 95 08/12/20 15:36 97 F 80 28 H 137/63 95 - My Orders Last 24 Hours: My Active Orders 08/12/20 16:49 Chest 2V [CR] Urgent - Assessment/Plan Last 24 Hours: My Active Orders 08/12/20 16:49 Chest 2V [CR] Urgent Plan: Assessment Acuity = acute Site and laterality = acute on chronic bronchitis Etiology = probable underlying COPD Manifestations = increased sputum production Location of injury = Home Lab values = CBC CMP lactic acid within normal limits chest x-ray I did review films myself I cannot appreciate any acute process, the official read from radiology is pending Plan He is willing to try a course of azithromycin follow-up primary care 3 to 5 days if not better prescription written for Z-Devan per package directions This note was dictated using [employer] voice recognition software please call with any questions on syntax or grammar.
--- NOTE | 2020-08-17 09:51 | CR ---
CHEST: 2 view CLINICAL HISTORY:Cough COMPARISON:07/31/2020 FINDINGS: No mass or infiltrate is identified. There is some mild perihilar bronchial thickening which appears more prominent than on prior study. Some of this may be technical. There are no effusions. Heart and pulmonary vascular appear normal. There are atherosclerotic changes in the aorta. IMPRESSION: Mild perihilar bronchial thickening Mild chronic interstitial changes.
== END 2020-08-12 18:06 | disposition home or self-care (01) ==
LOC: JP.ED 15:18
DX: J41.0 Simple chronic bronchitis (principal); K21.9 Gastro-esophageal reflux disease without esophagitis; E11.9 Type 2 diabetes mellitus without complications; Z79.899 Other long term (current) drug therapy; Z86.73 Personal history of transient ischemic attack (TIA), and cerebral infarction without residual deficits
CPT/HCPCS: 36415; 71046; 80053; 83605; 85025; 99285-25

== ENCOUNTER 2021-10-23 14:21 | Emergency (ER) | payer MEDICARE, MEDICAID | END 2021-10-23 15:42 | disposition home or self-care (01) | LOC: JP.ED 14:21 | DX: J40 Bronchitis, not specified as acute or chronic (principal); I10 Essential (primary) hypertension; J44.9 Chronic obstructive pulmonary disease, unspecified; E11.9 Type 2 diabetes mellitus without complications; K21.9 Gastro-esophageal reflux disease without esophagitis; Z86.73 Personal history of transient ischemic attack (TIA), and cerebral infarction without residual deficits; Z79.899 Other long term (current) drug therapy | CPT/HCPCS: 71045; 99283 ==

== ENCOUNTER 2022-01-22 17:55 | Emergency (ER) | payer MEDICARE, MEDICAID ==
[2022-01-22] MEDS ORDERED: Albuterol/Ipratropium 3.0-0.5 MG/3 ML Neb Soln NEB ONE (18:22)
[2022-01-22 19:01] LABS: TROPONIN I HIGH SENSITIVITY 7.5 pg/mL (<=60.3)
[2022-01-22 19:27] LABS: CORONAVIRUS COVID-19 NAA NEGATIVE (NEGATIVE)
== END 2022-01-22 19:28 | disposition home or self-care (01) ==
LOC: JP.ED 17:55
DX: J40 Bronchitis, not specified as acute or chronic (principal); I10 Essential (primary) hypertension; E11.9 Type 2 diabetes mellitus without complications; Z79.899 Other long term (current) drug therapy; Z79.84 Long term (current) use of oral hypoglycemic drugs; Z20.822 Contact with and (suspected) exposure to COVID-19
CPT/HCPCS: 0241U; 36415; 71045; 80053; 84484; 85025; 93005; 93010; 94640; 99282; 99284; J7620

== ENCOUNTER 2023-01-06 17:39 | Emergency (ER) | payer MEDICAID, MEDICARE ==
[2023-01-06 18:00] LABS: HEMATOCRIT 40.8 % (38.4-49.7); HEMOGLOBIN 13.5 g/dL (12.9-16.9); MEAN CORPUSCULAR HEMOGLOBIN 28.2 pg (31.6-35.5); MEAN CORPUSCULAR HGB CONC 33.1 g/dL (31.6-35.5); MEAN CORPUSCULAR VOLUME 85.4 fL (81.4-99.0); RED BLOOD CELL COUNT 4.78 M/uL (4.14-5.76); WHITE BLOOD CELL COUNT,WBC 6.4 K/uL (3.2-11.0)
[2023-01-06 18:23] LABS: INR 1.1; PROTHROMBIN TIME 10.7 sec (9.2-10.6)
[2023-01-06 18:25] LABS: A/G RATIO 0.9 (1.2-2.2); ALANINE AMINOTRANSFERASE,ALT 14 U/L (12-78); ALBUMIN 3.9 g/dL (3.4-5.0); ALKALINE PHOSPHATASE 138 U/L (46-116); ANION GAP 14.6 mmol/L (5.0-14.0); ASPARTATE AMNIOTRANSFERASE,AST 20 U/L (15-37); BILIRUBIN TOTAL 0.9 mg/dL (0.2-1.0); BLOOD UREA NITROGEN,BUN 15 mg/dL (7-18); CALCIUM 9.1 mg/dL (8.5-10.1); CARBON DIOXIDE,CO2 26 mmol/L (21-32); CHLORIDE,CL 97 mmol/L (100-108); CREATININE 1.5 mg/dL (0.8-1.3); ESTIMATED GFR 48 mL/min (>60); GLUCOSE RANDOM 109 mg/dL (74-106); POTASSIUM,K 3.6 mmol/L (3.6-5.2); PROTEIN TOTAL,TP 8.2 g/dL (6.4-8.2); SODIUM,NA 134 mmol/L (140-148)
[2023-01-06] MEDS ORDERED: Ketorolac 30 MG/ML SDV IVPUSH ONE (19:33)
[2023-01-06] MEDS ORDERED: Methocarbamol 500 MG Tab PO ONE (19:33)
[2023-01-06] MEDS ORDERED: Ketorolac 30 MG/ML SDV IM ONE (19:56)
== END 2023-01-06 20:23 | disposition home or self-care (01) ==
LOC: JP.ED 17:39
DX: S13.4XXA Sprain of ligaments of cervical spine, initial encounter (principal); S00.03XA Contusion of scalp, initial encounter; I10 Essential (primary) hypertension; E11.9 Type 2 diabetes mellitus without complications; J44.9 Chronic obstructive pulmonary disease, unspecified; Z79.84 Long term (current) use of oral hypoglycemic drugs; Z87.891 Personal history of nicotine dependence; W18.09XA Striking against other object with subsequent fall, initial encounter
CPT/HCPCS: 36415; 70450; 71046; 72125; 76377; 80053; 80307; 85027; 85610; 96372; 99284; A9270; J1885

== ENCOUNTER 2023-01-12 16:23 | Emergency (ER) | payer MEDICARE | END 2023-01-12 18:34 | disposition left against medical advice (07) | LOC: JP.ED 16:23 | DX: R42 Dizziness and giddiness (principal); I10 Essential (primary) hypertension; J43.9 Emphysema, unspecified; E11.9 Type 2 diabetes mellitus without complications; K21.9 Gastro-esophageal reflux disease without esophagitis; E03.9 Hypothyroidism, unspecified; Z79.84 Long term (current) use of oral hypoglycemic drugs; Z79.899 Other long term (current) drug therapy | CPT/HCPCS: 99283 ==

== ENCOUNTER 2023-01-22 18:00 | Emergency (ER) | payer MEDICARE | END 2023-01-22 18:40 | disposition left against medical advice (07) | LOC: JP.ED 18:00 | DX: Z53.21 Procedure and treatment not carried out due to patient leaving prior to being seen by health care provider (principal) ==

== ENCOUNTER 2023-02-23 17:33 | Emergency (ER) | payer MEDICARE ==
[2023-02-23 17:50] LABS: HEMATOCRIT 35.7 % (38.4-49.7); HEMOGLOBIN 11.9 g/dL (12.9-16.9); MEAN CORPUSCULAR HEMOGLOBIN 29.1 pg (31.6-35.5); MEAN CORPUSCULAR HGB CONC 33.3 g/dL (31.6-35.5); MEAN CORPUSCULAR VOLUME 87.3 fL (81.4-99.0); PLATELET COUNT,PLT 235 K/uL (130-375); RED BLOOD CELL COUNT 4.09 M/uL (4.14-5.76); WHITE BLOOD CELL COUNT,WBC 3.8 K/uL (3.2-11.0)
[2023-02-23 18:03] LABS: A/G RATIO 0.7 (1.2-2.2); ALANINE AMINOTRANSFERASE,ALT 29 U/L (12-78); ALBUMIN 3.4 g/dL (3.4-5.0); ALKALINE PHOSPHATASE 167 U/L (46-116); ASPARTATE AMNIOTRANSFERASE,AST 40 U/L (15-37); BILIRUBIN TOTAL 0.4 mg/dL (0.2-1.0); BLOOD UREA NITROGEN,BUN 15 mg/dL (7-18); CALCIUM 8.1 mg/dL (8.5-10.1); CARBON DIOXIDE,CO2 24 mmol/L (21-32); CHLORIDE,CL 98 mmol/L (100-108); CREATININE 1.3 mg/dL (0.8-1.3); ESTIMATED GFR 57 mL/min (>60); GLUCOSE RANDOM 157 mg/dL (74-106); SODIUM,NA 138 mmol/L (140-148)
[2023-02-23] MEDS ORDERED: cefTRIAXone 1 GM in Sodium Chloride 0.9% 50 ML IV ONE (18:03)
[2023-02-23] MEDS ORDERED: methylPREDNISolone Sodium Succinate 125 MG/2 ML SDV IVPUSH ONE (18:03)
[2023-02-23] MEDS ORDERED: Azithromycin 250 MG Tab PO ONE (18:04)
[2023-02-23 18:18] LABS: EOSINOPHILS ABSOLUTE MAN 0.04 K/uL (0.00-0.40); EOSINOPHILS PERCENT MAN 1 % (2-4); LYMPHOCYTES ABSOLUTE MAN 1.52 K/uL (0.8-3.3); LYMPHOCYTES PERCENT MAN 40 % (24-44); METAMYELOCYTE ABSOLUTE MAN 0.04 K/uL; METAMYELOCYTE PERCENT MAN 1 %; MONOCYTES ABSOLUTE MAN 0.65 K/uL (0.20-0.90); MONOCYTES PERCENT MAN 17 % (2-6); NEUTROPHILS ABSOLUTE MAN 1.56 K/uL (1.0-7.6); SEG NEUTROPHILS PERCENT MAN 41 % (36-66)
[2023-02-23 18:19] LABS: ATYPICAL LYMPHOCYTES RARE
[2023-02-23] MEDS ORDERED: Ondansetron 4 MG/2 ML SDV IVPUSH ONE (19:19)
== END 2023-02-23 21:45 | disposition other institution (70) ==
LOC: JP.ED 17:33
DX: J44.1 Chronic obstructive pulmonary disease with (acute) exacerbation (principal); I10 Essential (primary) hypertension; E11.9 Type 2 diabetes mellitus without complications; F17.210 Nicotine dependence, cigarettes, uncomplicated; Z20.822 Contact with and (suspected) exposure to COVID-19; Z79.84 Long term (current) use of oral hypoglycemic drugs; Z79.899 Other long term (current) drug therapy; Z86.73 Personal history of transient ischemic attack (TIA), and cerebral infarction without residual deficits
CPT/HCPCS: 36415; 71045; 80053; 83605; 84145; 85025; 96365; 96375; 99285; A9270; J0696; J2405; J2930; J3490; U0002

== ENCOUNTER 2023-04-02 13:22 | Emergency (ER) | payer MEDICARE ==
[2023-04-02] MEDS ORDERED: Aspirin 81 MG Tab.Chew PO ONE (13:44)
[2023-04-02] MEDS ORDERED: Sodium Chloride 0.9% 10 ML Syringe FLUSH PRN (13:44)
[2023-04-02] MEDS ORDERED: Morphine 4 MG/ML Syringe IVPUSH PRN (13:44)
[2023-04-02] MEDS ORDERED: Nitroglycerin 0.4 MG Tab.SL SL PRN (13:44)
[2023-04-02 13:58] LABS: HEMOGLOBIN 9.8 g/dL (12.9-16.9); MEAN CORPUSCULAR HEMOGLOBIN 30.3 pg (31.6-35.5); MEAN CORPUSCULAR HGB CONC 32.7 g/dL (31.6-35.5); MEAN CORPUSCULAR VOLUME 92.9 fL (81.4-99.0); PLATELET COUNT,PLT 197 K/uL (130-375); RED BLOOD CELL COUNT 3.23 M/uL (4.14-5.76); WHITE BLOOD CELL COUNT,WBC 1.6 K/uL (3.2-11.0)
[2023-04-02 14:23] LABS: A/G RATIO 0.9 (1.2-2.2); ALANINE AMINOTRANSFERASE,ALT 17 U/L (12-78); ALBUMIN 3.2 g/dL (3.4-5.0); ALKALINE PHOSPHATASE 97 U/L (46-116); ASPARTATE AMNIOTRANSFERASE,AST 19 U/L (15-37); BILIRUBIN TOTAL 0.2 mg/dL (0.2-1.0); BLOOD UREA NITROGEN,BUN 16 mg/dL (7-18); CALCIUM 8.2 mg/dL (8.5-10.1); CARBON DIOXIDE,CO2 28 mmol/L (21-32); CHLORIDE,CL 105 mmol/L (100-108); CREATININE 1.1 mg/dL (0.8-1.3); EST CRCL DRUG DOSING (CG) 63.29 mL/min; ESTIMATED GFR 70 mL/min (>60); GLUCOSE RANDOM 110 mg/dL (74-106); POTASSIUM,K 3.5 mmol/L (3.6-5.2); PROTEIN TOTAL,TP 6.7 g/dL (6.4-8.2); SODIUM,NA 138 mmol/L (140-148); TROPONIN I HIGH SENSITIVITY 13.2 pg/mL (<=60.3)
[2023-04-02 14:29] LABS: ANION GAP 8.5 mmol/L (5.0-14.0)
[2023-04-02 14:32] LABS: ATYPICAL LYMPHOCYTES FEW; BAND ABSOLUTE MAN 0.02 K/uL; BAND PERCENT MAN 1 % (5-11); BASOPHILS ABSOLUTE MAN 0.02 K/uL (0.00-0.10); BASOPHILS PERCENT MAN 1 % (0-1); EOSINOPHILS ABSOLUTE MAN 0.08 K/uL (0.00-0.40); EOSINOPHILS PERCENT MAN 5 % (2-4); LYMPHOCYTES ABSOLUTE MAN 0.82 K/uL (0.8-3.3); LYMPHOCYTES PERCENT MAN 51 % (24-44); MONOCYTES ABSOLUTE MAN 0.19 K/uL (0.20-0.90); MONOCYTES PERCENT MAN 12 % (2-6); NEUTROPHILS ABSOLUTE MAN 0.48 K/uL (1.0-7.6); SEG NEUTROPHILS PERCENT MAN 30 % (36-66)
[2023-04-02] MEDS ORDERED: fentaNYL 100 MCG/2 ML SDV IVPUSH ONE (15:51)
[2023-04-02 17:35] LABS: LYME AB IgG Negative (Negative); LYME AB IgM Negative (Negative)
[2023-04-04 16:09] LABS: BANDS 1 % (Not Estab.); BASOS 2 % (Not Estab.); EOS 4 % (Not Estab.); EOS (ABSOLUTE) 0.1 x10E3/uL (0.0-0.4); HEMATOCRIT 29.9 % (37.5-51.0); HEMATOLOGY COMMENTS: Note: (.); IMMATURE CELLS Note (.); LYMPHS 62 % (Not Estab.); MCH 30.5 pg (26.6-33.0); MCHC 33.4 g/dL (31.5-35.7); MCV 91 fL (79-97); MONOCYTES 5 % (Not Estab.); MONOCYTES(ABSOLUTE) 0.1 x10E3/uL (0.1-0.9); NEUTROPHILS 26 % (Not Estab.); NEUTROPHILS (ABSOLUTE) 0.4 x10E3/uL (1.4-7.0); PLATELETS 228 x10E3/uL (150-450); PLTS Appear normal. (.); RBC 3.28 x10E6/uL (4.14-5.80); RDW 18.4 % (11.6-15.4); WBC 1.6 x10E3/uL (3.4-10.8)
[2023-04-07 14:13] LABS: A. PHAGOCYTOPHILUM IGG Negative (Neg:<1:64); A. PHAGOCYTOPHILUM IGM Negative (Neg:<1:20)
== END 2023-04-02 17:57 | disposition left against medical advice (07) ==
LOC: JP.ED 13:22
DX: R07.9 Chest pain, unspecified (principal); I10 Essential (primary) hypertension; E11.9 Type 2 diabetes mellitus without complications; J43.9 Emphysema, unspecified
CPT/HCPCS: 36415; 71045; 80053; 84443; 84484; 85025; 85060; 86618; 86666; 86753; 93005; 96374; 96375; 99285; A9270; J2270; J3010; J3490; 93010; 99284

== ENCOUNTER 2023-05-14 15:47 | Emergency (ER) | payer MEDICARE ==
[2023-05-14] MEDS ORDERED: Sodium Chloride 0.9% 10 ML Syringe FLUSH PRN (16:01)
[2023-05-14] MEDS ORDERED: Sodium Chloride 0.9% 1,000 ML IV ONE (16:07)
[2023-05-14] MEDS ORDERED: HYDROmorphone 0.5 MG/0.5 ML Syringe IM ONE (16:25)
[2023-05-14] MEDS ORDERED: Naloxone 0.4 MG/ML SDV IVPUSH PRN (16:26)
[2023-05-14] MEDS ORDERED: fentaNYL 25 MCG/HR Transdermal Patch TRDERM SCH (17:30)
[2023-05-14] MEDS: Lidocaine 4% 1 each Patch TOP SCH (18:51)
[2023-05-15] MEDS: Lidocaine 4% 1 each Patch TOP SCH (10:03)
== END 2023-05-15 13:48 | disposition home or self-care (01) ==
LOC: JP.ED 15:47
DX: E86.0 Dehydration (principal); J44.9 Chronic obstructive pulmonary disease, unspecified; E11.9 Type 2 diabetes mellitus without complications; E46 Unspecified protein-calorie malnutrition
CPT/HCPCS: 71045; 96372; 99285; A9270; J1170

== ENCOUNTER 2023-06-17 01:27 | Observation (INO) | payer MEDICARE ==
[2023-06-17] MEDS ORDERED: Acetaminophen 650 MG Supp RECTAL PRN (01:56)
[2023-06-17] MEDS ORDERED: Acetaminophen 325 MG Tab PO PRN (01:56)
[2023-06-17] MEDS: Morphine 10 MG/0.5 ML Oral Syringe PO PRN ×3 (02:02→13:31)
[2023-06-17] MEDS: LORazepam ORAL Concentrate 1MG/0.5ML U/D PO PRN ×2 (06:39→13:48)
== END 2023-06-17 14:12 | disposition home or self-care (01) ==
LOC: JP.MS 01:27
PROVIDERS: ADMIT Hospitalist; ATTEND Hospitalist
DX: C32.9 Malignant neoplasm of larynx, unspecified (principal); R06.03 Acute respiratory distress; B19.20 Unspecified viral hepatitis C without hepatic coma; E11.9 Type 2 diabetes mellitus without complications; I10 Essential (primary) hypertension; J44.9 Chronic obstructive pulmonary disease, unspecified; F41.9 Anxiety disorder, unspecified; Z79.899 Other long term (current) drug therapy; Z98.890 Other specified postprocedural states; Z93.0 Tracheostomy status; Z20.822 Contact with and (suspected) exposure to COVID-19
CPT/HCPCS: A9270; G0378; G0379; U0002; 99236